=== PATIENT | male | born 1955 | race African-American/Black ===

== ENCOUNTER 2022-07-31 07:20 | Inpatient (IN) ==
[2022-07-31] MEDS ORDERED: ALBUTEROL 2.5 MG/3 ML NEB RESP TX PRN (13:34)
[2022-07-31] MEDS ORDERED: ONDANSETRON 4 MG/2 ML VIAL IV PRN (13:34)
[2022-07-31] MEDS ORDERED: DEXTROSE 10% 250 ML BAG IV PRN (13:40)
[2022-07-31] MEDS ORDERED: GLUCAGON 1 MG VIAL IM PRN (13:40)
[2022-07-31 13:58] LABS: Arterial Base Excess iSTAT 0 MMOL/L (-2.5-2.5); Arterial Bicarbonate iSTAT 25.1 MMOL/L (20-26); Arterial O2 Saturation iSTAT 95 % (95-100); Arterial PCO2 iSTAT 43 MM HG (35-48); Arterial PO2 iSTAT 76 MM HG (80-95); Arterial Total CO2 iSTAT 26 MMO/L (23-27); Arterial pH iSTAT 7.373 (7.35-7.45)
[2022-07-31 14:24] LABS: Basophils % 0.2 % (0.0-0.8); Eosinophils # 0.2 10*3/uL (0.0-0.87); Eosinophils % 2.7 % (0.00-10.9); Hematocrit 25.9 VOL% (42.0-52.0); Hemoglobin 8.2 GM/DL (14.0-18.0); Immature Granulocytes % 0.5 %; Immature Granulocytes Absolute 0.04 #; Lymphocytes # 0.9 10*3/uL (1.4-4.0); Lymphocytes % 10.5 % (21.2-54.2); Mean Corpuscular HGB Conc 31.7 GM/DL (32-36); Mean Platelet Volume 11.2 FL (9.6-12.0); Monocytes # 0.7 10*3/uL (0.11-0.8); Monocytes % 8.7 % (1.7-12.7); NRBC # 0.02 10*3/uL; Neutrophils % 77.4 % (38.7-73.9); Platelet Count 117 T/CUMM (130-400); Red Blood Count 3.01 MC/CUMM (3.8-5.5); Red Cell Distribution Width 15.9 % (9.3-17.3); White Blood Count 8.5 T/CUMM (4-12)
[2022-07-31] MEDS: PANTOPRAZOLE 40 MG VIAL IV SCH (14:26)
[2022-07-31] MEDS: ENOXAPARIN 30 MG/0.3 ML SYRINGE SUBCUT SCH (14:30)
[2022-07-31 14:42] LABS: Alanine Aminotransferase 110 U/L (16-61); Albumin 2.3 G/DL (3.4-5.0); Alkaline Phosphatase 392 U/L (45-117); Aspartate Amino Transferase 41 U/L (0-37); Blood Urea Nitrogen 83 MG/DL (7-18); Calcium 9.1 MG/DL (8.5-10.1); Carbon Dioxide 25 MMOL/L (21-32); Chloride 103 MMOL/L (98-107); Glucose 169 MG/DL (74-106); Lactic Acid 2.2 MMOL/L (0.4-2.0); Potassium 5.4 MMOL/L (3.5-5.1); Sodium 136 MMOL/L (136-145); Total Protein 6.6 G/DL (6.4-8.2)
[2022-07-31 14:49] LABS: INR 1.1; PT Patient Result 12.1 SECS (10.1-12.1)
[2022-07-31] MEDS: CEFEPIME 1,000 MG in SODIUM CHLORIDE 0.9% 100 ML IV SCH (16:17)
[2022-07-31] MEDS: INSULIN LISPRO 100 UNIT/ML SUBCUT SCH (18:05)
[2022-07-31 18:26] LABS: Bilirubin,Urine Negative (Negative); Blood, Urine Moderate mg/dL (Negative); Glucose,Urine (UA) Negative (Negative); Hyaline Casts,Urine 3 /LPF (0-3); Ketones,Urine Negative (Negative); Nitrite,Urine Negative (Negative); Protein,Urine 100 mg/dL (Negative); RBC,Urine 31 /HPF (0-4); Squamous Epithelial Cell,Urine Occasional /HPF (0-10); Urine Appearance CLOUDY (Clear); Urine Color Yellow (Yellow); Urine Specific Gravity 1.014 (1.001-1.035); Urine Urobilinogen < 2.0 eU/dL (<2.0)
[2022-07-31] MEDS: SODIUM ZIRCONIUM CYCLOSILICATE 10 GM PACK PO SCH (21:28)
[2022-08-01] MEDS: INSULIN LISPRO 100 UNIT/ML SUBCUT SCH ×4 (00:02→18:16)
[2022-08-01] MEDS: CEFEPIME 1,000 MG in SODIUM CHLORIDE 0.9% 100 ML IV SCH ×2 (02:04→15:29)
[2022-08-01 03:47] LABS: Arterial Base Excess iSTAT 0 MMOL/L (-2.5-2.5); Arterial Bicarbonate iSTAT 25.1 MMOL/L (20-26); Arterial O2 Saturation iSTAT 97 % (95-100); Arterial PCO2 iSTAT 41 MM HG (35-48); Arterial PO2 iSTAT 90 MM HG (80-95); Arterial Total CO2 iSTAT 26 MMO/L (23-27); Arterial pH iSTAT 7.391 (7.35-7.45)
[2022-08-01 04:37] LABS: Basophils % 0.4 % (0.0-0.8); Eosinophils # 0.3 10*3/uL (0.0-0.87); Eosinophils % 4.3 % (0.00-10.9); Hematocrit 25.7 VOL% (42.0-52.0); Immature Granulocytes % 0.3 %; Immature Granulocytes Absolute 0.02 #; Lymphocytes # 1.1 10*3/uL (1.4-4.0); Lymphocytes % 14.8 % (21.2-54.2); Mean Corpuscular HGB Conc 31.1 GM/DL (32-36); Mean Corpuscular Volume 86.8 FL (87-102); Mean Platelet Volume 11.9 FL (9.6-12.0); Monocytes # 0.8 10*3/uL (0.11-0.8); Monocytes % 10.5 % (1.7-12.7); Neutrophils % 69.7 % (38.7-73.9); Platelet Count 111 T/CUMM (130-400); Red Blood Count 2.96 MC/CUMM (3.8-5.5); Red Cell Distribution Width 15.8 % (9.3-17.3); White Blood Count 7.7 T/CUMM (4-12)
[2022-08-01 05:13] LABS: Osmolality,Calculated 303.7 MOS/KG (273-304); Potassium 5.1 MMOL/L (3.5-5.1)
[2022-08-01 06:06] LABS: Risk Ratio 2.53; VLDL Cholesterol 17.4 MG/DL
[2022-08-01] MEDS: SODIUM ZIRCONIUM CYCLOSILICATE 10 GM PACK PO SCH ×3 (08:31→20:52)
[2022-08-01] MEDS: amLODIPine 5 MG TABLET PO SCH (09:49)
[2022-08-01] MEDS: PANTOPRAZOLE 40 MG VIAL IV SCH (13:15)
[2022-08-01] MEDS: ENOXAPARIN 30 MG/0.3 ML SYRINGE SUBCUT SCH (13:15)
[2022-08-01] MEDS ORDERED: ATORVASTATIN 80 MG TABLET PO SCH (21:00)
[2022-08-02] MEDS: INSULIN LISPRO 100 UNIT/ML SUBCUT SCH ×5 (00:14→23:54)
[2022-08-02] MEDS: CEFEPIME 1,000 MG in SODIUM CHLORIDE 0.9% 100 ML IV SCH ×2 (02:40→16:22)
[2022-08-02 03:54] LABS: Arterial Base Excess iSTAT 0 MMOL/L (-2.5-2.5); Arterial Bicarbonate iSTAT 25.4 MMOL/L (20-26); Arterial O2 Saturation iSTAT 96 % (95-100); Arterial PCO2 iSTAT 43 MM HG (35-48); Arterial PO2 iSTAT 84 MM HG (80-95); Arterial Total CO2 iSTAT 27 MMO/L (23-27); Arterial pH iSTAT 7.376 (7.35-7.45)
[2022-08-02 04:46] LABS: Basophils % 0.4 % (0.0-0.8); Eosinophils # 0.3 10*3/uL (0.0-0.87); Eosinophils % 3.8 % (0.00-10.9); Hematocrit 24.8 VOL% (42.0-52.0); Hemoglobin 7.8 GM/DL (14.0-18.0); Immature Granulocytes % 0.6 %; Immature Granulocytes Absolute 0.05 #; Lymphocytes % 12.5 % (21.2-54.2); Mean Corpuscular HGB Conc 31.5 GM/DL (32-36); Mean Corpuscular Volume 86.7 FL (87-102); Mean Platelet Volume 11.6 FL (9.6-12.0); Monocytes # 0.9 10*3/uL (0.11-0.8); Monocytes % 11.7 % (1.7-12.7); NRBC # 0.02 10*3/uL; Platelet Count 101 T/CUMM (130-400); Red Blood Count 2.86 MC/CUMM (3.8-5.5); Red Cell Distribution Width 15.8 % (9.3-17.3); White Blood Count 7.9 T/CUMM (4-12)
[2022-08-02 05:05] LABS: Albumin 2.2 G/DL (3.4-5.0); Bilirubin,Total 0.6 MG/DL (0.20-1.00); Calcium 8.7 MG/DL (8.5-10.1); Osmolality,Calculated 316.3 MOS/KG (273-304); Potassium 4.9 MMOL/L (3.5-5.1); Total Protein 6.4 G/DL (6.4-8.2)
[2022-08-02] MEDS: LORazepam 2 MG/1 ML VIAL IV PRN ×2 (05:52→22:54)
[2022-08-02] MEDS: amLODIPine 5 MG TABLET PO SCH (08:50)
[2022-08-02] MEDS: SODIUM ZIRCONIUM CYCLOSILICATE 10 GM PACK PO SCH ×2 (08:51→16:20)
[2022-08-02] MEDS: ASPIRIN EC 81 MG TABLET PO SCH (08:51)
[2022-08-02] MEDS: CLOPIDOGREL 75 MG TABLET PO SCH (08:51)
[2022-08-02] MEDS ORDERED: FUROSEMIDE 40 MG/4 ML VIAL IV ONE (11:17)
[2022-08-02 11:37] LABS: Basophils % 0.4 % (0.0-0.8); Eosinophils # 0.3 10*3/uL (0.0-0.87); Hematocrit 25.1 VOL% (42.0-52.0); Hemoglobin 7.7 GM/DL (14.0-18.0); Immature Granulocytes % 0.9 %; Immature Granulocytes Absolute 0.07 #; Lymphocytes # 0.9 10*3/uL (1.4-4.0); Mean Corpuscular HGB Conc 30.7 GM/DL (32-36); Mean Corpuscular Volume 88.1 FL (87-102); Mean Platelet Volume 11.3 FL (9.6-12.0); Monocytes # 0.9 10*3/uL (0.11-0.8); Monocytes % 11.4 % (1.7-12.7); Neutrophils % 72.3 % (38.7-73.9); Platelet Count 101 T/CUMM (130-400); Red Blood Count 2.85 MC/CUMM (3.8-5.5); Red Cell Distribution Width 15.9 % (9.3-17.3)
[2022-08-02] MEDS ORDERED: ZINC OXIDE PASTE 113 GM TUBE TOP PRN (11:46)
[2022-08-02 11:56] LABS: % Iron Saturation 42.9 % (18-50); Ferritin 977.3 ng/mL (26-388)
[2022-08-02 12:25] LABS: Folate 4.38 NG/ML (5.38-24.0); Vitamin B12 > 2000 PG/ML (211-911)
[2022-08-02] MEDS: METOPROLOL TARTRATE 25 MG TABLET NG SCH ×2 (12:52→20:30)
[2022-08-02] MEDS: PANTOPRAZOLE 40 MG VIAL IV SCH (16:20)
[2022-08-02] MEDS: ENOXAPARIN 30 MG/0.3 ML SYRINGE SUBCUT SCH (16:21)
[2022-08-03] MEDS: CEFEPIME 1,000 MG in SODIUM CHLORIDE 0.9% 100 ML IV SCH ×2 (03:28→17:30)
[2022-08-03 03:29] LABS: Arterial Base Excess iSTAT 2 MMOL/L (-2.5-2.5); Arterial Bicarbonate iSTAT 26.8 MMOL/L (20-26); Arterial O2 Saturation iSTAT 97 % (95-100); Arterial PCO2 iSTAT 44 MM HG (35-48); Arterial PO2 iSTAT 88 MM HG (80-95); Arterial Total CO2 iSTAT 28 MMO/L (23-27); Arterial pH iSTAT 7.396 (7.35-7.45)
[2022-08-03 03:53] LABS: Band Neutrophils 1 % (0-10); Eosinophils 2 % (0-10); Lymphocytes 16 % (20-55); Total Cells Counted 100
[2022-08-03 03:54] LABS: Hypochromia Slight; Microcytosis Slight; Ovalocytes Few
[2022-08-03 04:48] LABS: Basophils % 0.4 % (0.0-0.8); Eosinophils # 0.4 10*3/uL (0.0-0.87); Eosinophils % 4.9 % (0.00-10.9); Hematocrit 24.9 VOL% (42.0-52.0); Hemoglobin 7.7 GM/DL (14.0-18.0); Immature Granulocytes % 0.5 %; Immature Granulocytes Absolute 0.04 #; Lymphocytes # 1.1 10*3/uL (1.4-4.0); Lymphocytes % 13.2 % (21.2-54.2); Mean Corpuscular HGB Conc 30.9 GM/DL (32-36); Mean Corpuscular Volume 87.1 FL (87-102); Mean Platelet Volume 11.8 FL (9.6-12.0); Monocytes # 0.9 10*3/uL (0.11-0.8); Monocytes % 11.4 % (1.7-12.7); NRBC # 0.02 10*3/uL; Neutrophils % 69.6 % (38.7-73.9); Platelet Count 103 T/CUMM (130-400); Red Blood Count 2.86 MC/CUMM (3.8-5.5); Red Cell Distribution Width 15.9 % (9.3-17.3); White Blood Count 8.2 T/CUMM (4-12)
[2022-08-03 05:06] LABS: Calcium 8.7 MG/DL (8.5-10.1); Osmolality,Calculated 316.1 MOS/KG (273-304); Potassium 4.6 MMOL/L (3.5-5.1)
[2022-08-03] MEDS: INSULIN LISPRO 100 UNIT/ML SUBCUT SCH ×4 (05:16→23:56)
[2022-08-03] MEDS: LORazepam 2 MG/1 ML VIAL IV PRN ×2 (08:45→19:22)
[2022-08-03] MEDS ORDERED: PHENYTOIN INJ 1,000 MG in SODIUM CHLORIDE 0.9% 100 ML IV ONE (09:00)
[2022-08-03] MEDS: METOPROLOL TARTRATE 25 MG TABLET NG SCH ×2 (09:21→21:52)
[2022-08-03] MEDS: ASPIRIN EC 81 MG TABLET PO SCH (09:22)
[2022-08-03] MEDS: CLOPIDOGREL 75 MG TABLET PO SCH (09:22)
[2022-08-03] MEDS: amLODIPine 5 MG TABLET PO SCH (09:22)
[2022-08-03] MEDS: ALBUTEROL 2.5 MG/3 ML NEB RESP TX SCH ×4 (13:42→23:44)
[2022-08-03] MEDS: PANTOPRAZOLE 40 MG VIAL IV SCH (14:29)
[2022-08-03] MEDS ORDERED: amLODIPine 5 MG TABLET NG ONE (14:30)
[2022-08-03] MEDS: ENOXAPARIN 30 MG/0.3 ML SYRINGE SUBCUT SCH (14:31)
[2022-08-03] MEDS: PHENYTOIN INJ 200 MG in SODIUM CHLORIDE 0.9% 100 ML IV SCH (21:52)
[2022-08-04] MEDS: ACETAMINOPHEN 325 MG TABLET PO PRN (01:34)
[2022-08-04] MEDS: ALBUTEROL 2.5 MG/3 ML NEB RESP TX SCH ×6 (03:17→23:40)
[2022-08-04] MEDS: CEFEPIME 1,000 MG in SODIUM CHLORIDE 0.9% 100 ML IV SCH (03:26)
[2022-08-04 03:45] LABS: Arterial Base Excess iSTAT 2 MMOL/L (-2.5-2.5); Arterial Bicarbonate iSTAT 27.2 MMOL/L (20-26); Arterial O2 Saturation iSTAT 96 % (95-100); Arterial PCO2 iSTAT 45 MM HG (35-48); Arterial PO2 iSTAT 80 MM HG (80-95); Arterial Total CO2 iSTAT 29 MMO/L (23-27)
[2022-08-04 05:40] LABS: Basophils % 0.4 % (0.0-0.8); Eosinophils # 0.3 10*3/uL (0.0-0.87); Eosinophils % 3.8 % (0.00-10.9); Hematocrit 22.8 VOL% (42.0-52.0); Hemoglobin 7.2 GM/DL (14.0-18.0); Immature Granulocytes % 0.5 %; Immature Granulocytes Absolute 0.04 #; Lymphocytes # 1.2 10*3/uL (1.4-4.0); Lymphocytes % 15.7 % (21.2-54.2); Mean Corpuscular HGB Conc 31.6 GM/DL (32-36); Mean Corpuscular Volume 87.4 FL (87-102); Mean Platelet Volume 11.9 FL (9.6-12.0); Monocytes # 1.1 10*3/uL (0.11-0.8); NRBC # 0.02 10*3/uL; Neutrophils % 65.6 % (38.7-73.9); Platelet Count 86 T/CUMM (130-400); Red Blood Count 2.61 MC/CUMM (3.8-5.5); Red Cell Distribution Width 15.8 % (9.3-17.3); White Blood Count 7.8 T/CUMM (4-12)
[2022-08-04] MEDS: INSULIN LISPRO 100 UNIT/ML SUBCUT SCH ×3 (05:52→17:56)
[2022-08-04 05:57] LABS: Calcium 8.5 MG/DL (8.5-10.1); Osmolality,Calculated 319.3 MOS/KG (273-304); Potassium 5.1 MMOL/L (3.5-5.1)
[2022-08-04 06:02] LABS: Hypochromia Slight; Microcytosis Slight; Platelet Estimate Decreased
[2022-08-04] MEDS: LORazepam 2 MG/1 ML VIAL IV PRN ×3 (06:02→13:23)
[2022-08-04] MEDS: ASPIRIN EC 81 MG TABLET PO SCH (08:59)
[2022-08-04] MEDS: amLODIPine 10 MG TABLET NG SCH (08:59)
[2022-08-04] MEDS: INSULIN GLARGINE 100 UNIT/ML SUBCUT SCH (09:00)
[2022-08-04] MEDS: CLOPIDOGREL 75 MG TABLET PO SCH (09:00)
[2022-08-04] MEDS: METOPROLOL TARTRATE 25 MG TABLET NG SCH ×2 (09:00→22:01)
[2022-08-04] MEDS: PHENYTOIN INJ 200 MG in SODIUM CHLORIDE 0.9% 100 ML IV SCH ×2 (09:40→22:01)
[2022-08-04] MEDS: PANTOPRAZOLE 40 MG VIAL IV SCH (13:25)
[2022-08-04] MEDS: ENOXAPARIN 30 MG/0.3 ML SYRINGE SUBCUT SCH (13:25)
[2022-08-05] MEDS: INSULIN LISPRO 100 UNIT/ML SUBCUT SCH ×4 (00:08→18:54)
[2022-08-05] MEDS: ALBUTEROL 2.5 MG/3 ML NEB RESP TX SCH ×6 (03:10→22:45)
[2022-08-05 03:45] LABS: Arterial Base Excess iSTAT 2 MMOL/L (-2.5-2.5); Arterial Bicarbonate iSTAT 27.4 MMOL/L (20-26); Arterial O2 Saturation iSTAT 95 % (95-100); Arterial PCO2 iSTAT 49 MM HG (35-48); Arterial PO2 iSTAT 80 MM HG (80-95); Arterial Total CO2 iSTAT 29 MMO/L (23-27); Arterial pH iSTAT 7.359 (7.35-7.45)
[2022-08-05] MEDS: CEFEPIME 1,000 MG in SODIUM CHLORIDE 0.9% 100 ML IV SCH (05:58)
[2022-08-05 06:04] LABS: Basophils % 0.3 % (0.0-0.8); Eosinophils # 0.6 10*3/uL (0.0-0.87); Eosinophils % 6.2 % (0.00-10.9); Hematocrit 23.4 VOL% (42.0-52.0); Hemoglobin 7.2 GM/DL (14.0-18.0); Immature Granulocytes % 1.1 %; Lymphocytes # 1.4 10*3/uL (1.4-4.0); Lymphocytes % 15.2 % (21.2-54.2); Mean Corpuscular HGB Conc 30.8 GM/DL (32-36); Mean Corpuscular Volume 88.3 FL (87-102); Mean Platelet Volume 12.3 FL (9.6-12.0); Monocytes # 1.4 10*3/uL (0.11-0.8); Monocytes % 15.3 % (1.7-12.7); NRBC # 0.04 10*3/uL; Neutrophils % 61.9 % (38.7-73.9); Platelet Count 81 T/CUMM (130-400); Red Blood Count 2.65 MC/CUMM (3.8-5.5); Red Cell Distribution Width 15.9 % (9.3-17.3); White Blood Count 9.2 T/CUMM (4-12)
[2022-08-05 06:27] LABS: Calcium 8.7 MG/DL (8.5-10.1); Osmolality,Calculated 323.4 MOS/KG (273-304); Potassium 5.4 MMOL/L (3.5-5.1)
[2022-08-05 06:33] LABS: Hypochromia Slight; Microcytosis Slight; Ovalocytes Slight; Platelet Estimate Decreased
[2022-08-05] MEDS: PHENYTOIN INJ 200 MG in SODIUM CHLORIDE 0.9% 100 ML IV SCH ×2 (08:45→21:18)
[2022-08-05] MEDS: METOPROLOL TARTRATE 25 MG TABLET NG SCH (08:45)
[2022-08-05] MEDS: amLODIPine 10 MG TABLET NG SCH (08:45)
[2022-08-05] MEDS: ASPIRIN EC 81 MG TABLET PO SCH (08:45)
[2022-08-05] MEDS: INSULIN GLARGINE 100 UNIT/ML SUBCUT SCH (09:25)
[2022-08-05] MEDS ORDERED: METOPROLOL TARTRATE 25 MG TABLET NG ONE (12:37)
[2022-08-05] MEDS: PANTOPRAZOLE 40 MG VIAL IV SCH (14:00)
[2022-08-05] MEDS: METOPROLOL TARTRATE 50 MG TABLET NG SCH (20:57)
[2022-08-06] MEDS: INSULIN LISPRO 100 UNIT/ML SUBCUT SCH ×3 (00:02→19:19)
[2022-08-06] MEDS: ALBUTEROL 2.5 MG/3 ML NEB RESP TX SCH ×6 (03:17→23:51)
[2022-08-06 03:18] LABS: ABG Base Excess 0.8 MMOL/L (-2.5-2.5); ABG HCO3 25.1 MMOL/L (20-26); ABG Oxygen Saturation 96.7 % (95-100); ABG PCO2 47.9 MM HG (35-48); ABG PH 7.356 (7.35-7.45); ABG TCO2 24.2 MMOL/L (23-27)
[2022-08-06 03:20] LABS: Basophils % 0.3 % (0.0-0.8); Eosinophils # 0.8 10*3/uL (0.0-0.87); Eosinophils % 7.2 % (0.00-10.9); Hematocrit 22.4 VOL% (42.0-52.0); Hemoglobin 7.1 GM/DL (14.0-18.0); Immature Granulocytes % 2.6 %; Immature Granulocytes Absolute 0.27 #; Lymphocytes # 1.3 10*3/uL (1.4-4.0); Lymphocytes % 12.4 % (21.2-54.2); Mean Corpuscular HGB Conc 31.7 GM/DL (32-36); Mean Corpuscular Volume 86.5 FL (87-102); Mean Platelet Volume 11.5 FL (9.6-12.0); Monocytes # 1.7 10*3/uL (0.11-0.8); NRBC # 0.11 10*3/uL; Neutrophils % 61.5 % (38.7-73.9); Platelet Count 76 T/CUMM (130-400); Red Blood Count 2.59 MC/CUMM (3.8-5.5); Red Cell Distribution Width 15.9 % (9.3-17.3); White Blood Count 10.5 T/CUMM (4-12)
[2022-08-06 03:33] LABS: Calcium 8.3 MG/DL (8.5-10.1); Osmolality,Calculated 321.5 MOS/KG (273-304); Potassium 5.8 MMOL/L (3.5-5.1)
[2022-08-06 03:43] LABS: Eosinophils 8 % (0-10); Lymphocytes 12 % (20-55); Nucleated Red Blood Cells 2 /100 WBC (0-5); Platelet Estimate Decreased; Total Cells Counted 100
[2022-08-06 04:14] LABS: Hepatitis B Core IgM Quant < 0.05 Index; Hepatitis B Surface Ag Quant < 0.10 Index; Hepatitis B Surface Ag Result Non-Reactive (NonReactive); Hepatitis C Virus Ab Quant 0.09 Index; Hepatitis C Virus Ab Result Non-Reactive (NonReactive)
[2022-08-06] MEDS: CEFEPIME 1,000 MG in SODIUM CHLORIDE 0.9% 100 ML IV SCH (05:09)
[2022-08-06] MEDS ORDERED: SODIUM CHLORIDE 0.9% 1,000 ML IV PRN (07:28)
[2022-08-06] MEDS: INSULIN GLARGINE 100 UNIT/ML SUBCUT SCH (09:18)
[2022-08-06] MEDS ORDERED: TISSUE ADHESIVE 1 EACH APPLICATOR TOP ONE (11:48)
[2022-08-06] MEDS ORDERED: BUPIVACAINE MPF 0.25% 10 ML VIAL ONE (11:48)
[2022-08-06] MEDS ORDERED: HEPARIN 5,000 UNIT/1 ML VIAL ONE (11:48)
[2022-08-06] MEDS ORDERED: LIDOCAINE MPF 2% /EPI 20 ML VIAL ONE (11:51)
[2022-08-06] MEDS ORDERED: HEPARIN 10,000 UNIT/10 ML VIAL IV PRN (16:21)
[2022-08-06] MEDS ORDERED: hydrALAZINE 20 MG/1 ML VIAL ONE (17:49)
[2022-08-06] MEDS: hydrALAZINE 20 MG/1 ML VIAL IV PRN (17:50)
[2022-08-06] MEDS: hydrALAZINE 25 MG TABLET NG SCH ×2 (19:17→21:00)
[2022-08-06] MEDS: ASPIRIN EC 81 MG TABLET PO SCH (19:17)
[2022-08-06] MEDS: amLODIPine 10 MG TABLET NG SCH (19:18)
[2022-08-06] MEDS: PHENYTOIN INJ 200 MG in SODIUM CHLORIDE 0.9% 100 ML IV SCH ×2 (19:18→21:00)
[2022-08-06] MEDS: METOPROLOL TARTRATE 50 MG TABLET NG SCH ×2 (19:19→21:16)
[2022-08-06] MEDS: LORazepam 2 MG/1 ML VIAL IV PRN (20:05)
[2022-08-06] MEDS: APIXABAN 2.5 MG TABLET PO SCH (21:16)
[2022-08-06] MEDS: FAMOTIDINE 8 MG/ML 50 ML/BOTTLE PO SCH (21:40)
[2022-08-07] MEDS: INSULIN LISPRO 100 UNIT/ML SUBCUT SCH ×4 (00:10→17:53)
[2022-08-07] MEDS: ALBUTEROL 2.5 MG/3 ML NEB RESP TX SCH ×5 (03:45→20:16)
[2022-08-07 04:54] LABS: ABG Base Excess 0.8 MMOL/L (-2.5-2.5); ABG HCO3 25.2 MMOL/L (20-26); ABG Oxygen Saturation 99.6 % (95-100); ABG PCO2 40.3 MM HG (35-48); ABG PH 7.409 (7.35-7.45)
[2022-08-07 05:00] LABS: Basophils # 0.1 10*3/uL (0.0-0.2); Basophils % 0.5 % (0.0-0.8); Hematocrit 23.3 VOL% (42.0-52.0); Hemoglobin 7.3 GM/DL (14.0-18.0); Immature Granulocytes % 7.3 %; Immature Granulocytes Absolute 0.88 #; Lymphocytes # 1.4 10*3/uL (1.4-4.0); Lymphocytes % 11.9 % (21.2-54.2); Mean Corpuscular HGB Conc 31.3 GM/DL (32-36); Mean Corpuscular Volume 86.9 FL (87-102); Mean Platelet Volume 12.3 FL (9.6-12.0); Monocytes # 1.6 10*3/uL (0.11-0.8); Monocytes % 13.1 % (1.7-12.7); Neutrophils % 59.2 % (38.7-73.9); Platelet Count 80 T/CUMM (130-400); Red Blood Count 2.68 MC/CUMM (3.8-5.5); Red Cell Distribution Width 16.2 % (9.3-17.3)
[2022-08-07 05:13] LABS: Calcium 8.6 MG/DL (8.5-10.1); Osmolality,Calculated 318.4 MOS/KG (273-304); Potassium 5.6 MMOL/L (3.5-5.1)
[2022-08-07 06:45] LABS: Band Neutrophils 1 % (0-10); Eosinophils 7 % (0-10); Hypochromia Slight; Lymphocytes 11 % (20-55); Microcytosis Slight; Ovalocytes Slight; Platelet Estimate Decreased; Total Cells Counted 100
[2022-08-07] MEDS: INSULIN GLARGINE 100 UNIT/ML SUBCUT SCH (10:13)
[2022-08-07] MEDS: amLODIPine 10 MG TABLET NG SCH (10:14)
[2022-08-07] MEDS: METOPROLOL TARTRATE 50 MG TABLET NG SCH ×2 (10:14→20:51)
[2022-08-07] MEDS: APIXABAN 2.5 MG TABLET PO SCH ×2 (10:15→20:51)
[2022-08-07] MEDS: hydrALAZINE 25 MG TABLET NG SCH ×3 (10:15→20:51)
[2022-08-07] MEDS: ASPIRIN EC 81 MG TABLET PO SCH (10:15)
[2022-08-07] MEDS: PHENYTOIN INJ 200 MG in SODIUM CHLORIDE 0.9% 100 ML IV SCH ×2 (10:17→20:55)
[2022-08-07] MEDS ORDERED: ALTEPLASE 2 MG VIAL IV SCH (10:30)
[2022-08-07] MEDS: FAMOTIDINE 8 MG/ML 50 ML/BOTTLE PO SCH (20:52)
[2022-08-08] MEDS: LORazepam 2 MG/1 ML VIAL IV PRN (00:03)
[2022-08-08] MEDS: ALBUTEROL 2.5 MG/3 ML NEB RESP TX SCH ×7 (00:04→23:20)
[2022-08-08] MEDS: INSULIN LISPRO 100 UNIT/ML SUBCUT SCH ×4 (00:08→17:39)
[2022-08-08 04:38] LABS: ABG Base Excess 1.5 MMOL/L (-2.5-2.5); ABG HCO3 25.8 MMOL/L (20-26); ABG Oxygen Saturation 99.3 % (95-100); ABG PCO2 48.7 MM HG (35-48); ABG PH 7.356 (7.35-7.45); ABG TCO2 25.8 MMOL/L (23-27)
[2022-08-08 04:42] LABS: Basophils % 0.3 % (0.0-0.8); Eosinophils # 0.8 10*3/uL (0.0-0.87); Eosinophils % 5.7 % (0.00-10.9); Hematocrit 23.4 VOL% (42.0-52.0); Hemoglobin 7.3 GM/DL (14.0-18.0); Immature Granulocytes % 6.9 %; Immature Granulocytes Absolute 0.97 #; Lymphocytes # 1.3 10*3/uL (1.4-4.0); Lymphocytes % 9.6 % (21.2-54.2); Mean Corpuscular HGB Conc 31.2 GM/DL (32-36); Mean Corpuscular Volume 88.3 FL (87-102); Mean Platelet Volume 11.3 FL (9.6-12.0); Monocytes # 1.9 10*3/uL (0.11-0.8); Monocytes % 13.7 % (1.7-12.7); NRBC # 0.16 10*3/uL; Neutrophils % 63.8 % (38.7-73.9); Red Blood Count 2.65 MC/CUMM (3.8-5.5); Red Cell Distribution Width 16.4 % (9.3-17.3)
[2022-08-08 04:43] LABS: Platelet Count 92 T/CUMM (130-400)
[2022-08-08 04:54] LABS: Calcium 8.5 MG/DL (8.5-10.1); Potassium 5.4 MMOL/L (3.5-5.1)
[2022-08-08 06:29] LABS: Band Neutrophils 1 % (0-10); Eosinophils 6 % (0-10); Hypochromia 1+; Lymphocytes 9 % (20-55); Microcytosis 1+; Nucleated Red Blood Cells 1 /100 WBC (0-5); Platelet Estimate Decreased; Total Cells Counted 100
[2022-08-08] MEDS: ASPIRIN EC 81 MG TABLET PO SCH (09:09)
[2022-08-08] MEDS: PHENYTOIN INJ 200 MG in SODIUM CHLORIDE 0.9% 100 ML IV SCH ×2 (09:09→21:45)
[2022-08-08] MEDS: hydrALAZINE 25 MG TABLET NG SCH ×3 (09:09→20:35)
[2022-08-08] MEDS: APIXABAN 2.5 MG TABLET PO SCH ×2 (09:10→20:35)
[2022-08-08] MEDS: INSULIN GLARGINE 100 UNIT/ML SUBCUT SCH (09:11)
[2022-08-08] MEDS: METOPROLOL TARTRATE 50 MG TABLET NG SCH ×2 (09:11→20:36)
[2022-08-08] MEDS: amLODIPine 10 MG TABLET NG SCH (09:11)
[2022-08-08] MEDS: FAMOTIDINE 8 MG/ML 50 ML/BOTTLE PO SCH (20:36)
[2022-08-09] MEDS: INSULIN LISPRO 100 UNIT/ML SUBCUT SCH ×5 (00:17→23:49)
[2022-08-09] MEDS: ALBUTEROL 2.5 MG/3 ML NEB RESP TX SCH ×6 (03:00→23:33)
[2022-08-09 03:31] LABS: Basophils # 0.1 10*3/uL (0.0-0.2); Basophils % 0.4 % (0.0-0.8); Eosinophils # 0.6 10*3/uL (0.0-0.87); Eosinophils % 4.2 % (0.00-10.9); Hemoglobin 7.4 GM/DL (14.0-18.0); Immature Granulocytes Absolute 0.96 #; Lymphocytes # 1.2 10*3/uL (1.4-4.0); Lymphocytes % 8.9 % (21.2-54.2); Mean Corpuscular HGB Conc 30.8 GM/DL (32-36); Mean Corpuscular Volume 89.2 FL (87-102); Monocytes # 1.6 10*3/uL (0.11-0.8); Monocytes % 11.6 % (1.7-12.7); Neutrophils % 67.9 % (38.7-73.9); Platelet Count 108 T/CUMM (130-400); Red Blood Count 2.69 MC/CUMM (3.8-5.5); Red Cell Distribution Width 16.7 % (9.3-17.3); White Blood Count 13.7 T/CUMM (4-12)
[2022-08-09 03:36] LABS: ABG Base Excess -0.6 MMOL/L (-2.5-2.5); ABG HCO3 23.9 MMOL/L (20-26); ABG PCO2 45.1 MM HG (35-48); ABG PH 7.352 (7.35-7.45); ABG PO2 91.6 MM HG (80-95); ABG TCO2 23.7 MMOL/L (23-27)
[2022-08-09 03:51] LABS: Calcium 8.6 MG/DL (8.5-10.1); Osmolality,Calculated 307.2 MOS/KG (273-304); Potassium 5.8 MMOL/L (3.5-5.1)
[2022-08-09 04:04] LABS: Band Neutrophils 3 % (0-10); Eosinophils 3 % (0-10); Lymphocytes 9 % (20-55); Microcytosis 1+; Nucleated Red Blood Cells 3 /100 WBC (0-5); Ovalocytes Slight; Platelet Estimate Decreased; Total Cells Counted 100
[2022-08-09 04:05] LABS: Hypochromia 1+
[2022-08-09] MEDS: INSULIN GLARGINE 100 UNIT/ML SUBCUT SCH ×2 (10:23)
[2022-08-09] MEDS: ASPIRIN EC 81 MG TABLET PO SCH (10:23)
[2022-08-09 11:05] LABS: ABG Base Excess 0.7 MMOL/L (-2.5-2.5); ABG HCO3 25.1 MMOL/L (20-26); ABG Oxygen Saturation 99.6 % (95-100); ABG PCO2 49.4 MM HG (35-48); ABG PH 7.343 (7.35-7.45)
[2022-08-09] MEDS: PHENYTOIN INJ 200 MG in SODIUM CHLORIDE 0.9% 100 ML IV SCH ×2 (11:38→21:00)
[2022-08-09] MEDS: fentaNYL INJ 1,250 MCG in SODIUM CHLORIDE 0.9% 225 ML IV PRN (12:30)
[2022-08-09] MEDS: hydrALAZINE 25 MG TABLET NG SCH ×3 (13:21→20:58)
[2022-08-09] MEDS: amLODIPine 10 MG TABLET NG SCH (13:21)
[2022-08-09] MEDS: APIXABAN 2.5 MG TABLET PO SCH ×2 (13:21→20:59)
[2022-08-09] MEDS: METOPROLOL TARTRATE 50 MG TABLET NG SCH ×2 (13:21→20:59)
[2022-08-09] MEDS ORDERED: ROCURONIUM 100 MG/10 ML VIAL IV ONE (13:23)
[2022-08-09] MEDS: methylPREDNISolone SOD SUC 40 MG/1 ML VIAL IV SCH ×2 (14:55→21:27)
[2022-08-09 15:04] LABS: ABG Base Excess -0.7 MMOL/L (-2.5-2.5); ABG HCO3 23.8 MMOL/L (20-26); ABG Oxygen Saturation 92.5 % (95-100); ABG PCO2 61.6 MM HG (35-48); ABG PH 7.252 (7.35-7.45); ABG PO2 75.7 MM HG (80-95); ABG TCO2 25.9 MMOL/L (23-27)
[2022-08-09 16:32] LABS: Arterial Base Excess iSTAT 1 MMOL/L (-2.5-2.5); Arterial Bicarbonate iSTAT 26.5 MMOL/L (20-26); Arterial O2 Saturation iSTAT 99 % (95-100); Arterial PCO2 iSTAT 49 MM HG (35-48); Arterial PO2 iSTAT 130 MM HG (80-95); Arterial Total CO2 iSTAT 28 MMO/L (23-27); Arterial pH iSTAT 7.344 (7.35-7.45)
[2022-08-09] MEDS: PIPERACILLIN/TAZOBACTAM 3,375 MG in SODIUM CHLORIDE 0.9% 100 ML IV SCH (20:58)
[2022-08-09] MEDS: FAMOTIDINE 8 MG/ML 50 ML/BOTTLE PO SCH (21:31)
[2022-08-10] MEDS: ALBUTEROL 2.5 MG/3 ML NEB RESP TX SCH ×6 (03:11→23:10)
[2022-08-10] MEDS: fentaNYL INJ 1,250 MCG in SODIUM CHLORIDE 0.9% 225 ML IV PRN ×2 (04:00→17:20)
[2022-08-10 04:11] LABS: ABG Base Excess 1.7 MMOL/L (-2.5-2.5); ABG PCO2 39.7 MM HG (35-48); ABG PH 7.426 (7.35-7.45); ABG TCO2 24.6 MMOL/L (23-27)
[2022-08-10 04:21] LABS: Basophils % 0.2 % (0.0-0.8); Eosinophils # 0.1 10*3/uL (0.0-0.87); Eosinophils % 0.6 % (0.00-10.9); Hematocrit 23.8 VOL% (42.0-52.0); Hemoglobin 7.4 GM/DL (14.0-18.0); Immature Granulocytes % 4.4 %; Immature Granulocytes Absolute 0.53 #; Lymphocytes # 0.7 10*3/uL (1.4-4.0); Lymphocytes % 5.6 % (21.2-54.2); Mean Corpuscular HGB Conc 31.1 GM/DL (32-36); Mean Corpuscular Volume 89.1 FL (87-102); Mean Platelet Volume 11.8 FL (9.6-12.0); Monocytes # 0.6 10*3/uL (0.11-0.8); Monocytes % 4.9 % (1.7-12.7); Neutrophils % 84.3 % (38.7-73.9); Platelet Count 135 T/CUMM (130-400); Red Blood Count 2.67 MC/CUMM (3.8-5.5); Red Cell Distribution Width 17.8 % (9.3-17.3); White Blood Count 12.1 T/CUMM (4-12)
[2022-08-10 04:28] LABS: Calcium 8.7 MG/DL (8.5-10.1); Osmolality,Calculated 298.1 MOS/KG (273-304); Potassium 5.5 MMOL/L (3.5-5.1)
[2022-08-10 04:43] LABS: Band Neutrophils 3 % (0-10); Eosinophils 1 % (0-10); Lymphocytes 8 % (20-55); Nucleated Red Blood Cells 1 /100 WBC (0-5); Total Cells Counted 100
[2022-08-10 04:44] LABS: Hypochromia 1+; Microcytosis 1+; Ovalocytes Few; Polychromasia Slight
[2022-08-10 04:45] LABS: Anisocytosis 1+
[2022-08-10] MEDS: methylPREDNISolone SOD SUC 40 MG/1 ML VIAL IV SCH ×3 (05:47→21:08)
[2022-08-10] MEDS: INSULIN LISPRO 100 UNIT/ML SUBCUT SCH ×3 (05:49→19:31)
[2022-08-10] MEDS ORDERED: FOSPHENYTOIN 1,000 MG.PE in SODIUM CHLORIDE 0.9% 250 ML IV ONE (11:00)
[2022-08-10] MEDS: hydrALAZINE 25 MG TABLET NG SCH ×3 (11:08→20:57)
[2022-08-10] MEDS: PHENYTOIN INJ 200 MG in SODIUM CHLORIDE 0.9% 100 ML IV SCH ×2 (11:09→20:29)
[2022-08-10] MEDS: APIXABAN 2.5 MG TABLET PO SCH ×2 (11:09→20:56)
[2022-08-10] MEDS: amLODIPine 10 MG TABLET NG SCH (11:10)
[2022-08-10] MEDS: PIPERACILLIN/TAZOBACTAM 3,375 MG in SODIUM CHLORIDE 0.9% 100 ML IV SCH ×2 (11:10→21:04)
[2022-08-10] MEDS: INSULIN GLARGINE 100 UNIT/ML SUBCUT SCH (11:20)
[2022-08-10] MEDS: METOPROLOL TARTRATE 50 MG TABLET NG SCH ×3 (11:20→20:57)
[2022-08-10 19:24] LABS: Bilirubin,Urine Negative (Negative); Blood, Urine Moderate mg/dL (Negative); Glucose,Urine (UA) Negative (Negative); Ketones,Urine Negative (Negative); Nitrite,Urine Negative (Negative); Protein,Urine 100 mg/dL (Negative); Urine Appearance Cloudy (Clear); Urine Color Yellow (Yellow); Urine Specific Gravity >= 1.030 (1.001-1.035); Urine Urobilinogen 0.2 eU/dL (<2.0)
[2022-08-10 19:28] LABS: Mucus,Urine Occasional /LPF (Occasional); RBC,Urine 41 /HPF (0-4); Squamous Epithelial Cell,Urine Occasional /HPF (0-10)
[2022-08-10] MEDS: FAMOTIDINE 8 MG/ML 50 ML/BOTTLE PO SCH (21:01)
[2022-08-11] MEDS: INSULIN LISPRO 100 UNIT/ML SUBCUT SCH ×4 (00:17→18:23)
[2022-08-11] MEDS: ALBUTEROL 2.5 MG/3 ML NEB RESP TX SCH ×6 (03:00→23:38)
[2022-08-11] MEDS: methylPREDNISolone SOD SUC 40 MG/1 ML VIAL IV SCH ×3 (05:21→21:20)
[2022-08-11 05:38] LABS: ABG Base Excess -2.1 MMOL/L (-2.5-2.5); ABG HCO3 22.6 MMOL/L (20-26); ABG Oxygen Saturation 97.5 % (95-100); ABG PCO2 22.5 MM HG (35-48); ABG PH 7.548 (7.35-7.45); ABG PO2 86.2 MM HG (80-95); ABG TCO2 18.3 MMOL/L (23-27)
[2022-08-11 05:40] LABS: Basophils % 0.1 % (0.0-0.8); Eosinophils % 0.1 % (0.00-10.9); Hematocrit 23.7 VOL% (42.0-52.0); Hemoglobin 7.6 GM/DL (14.0-18.0); Immature Granulocytes % 1.8 %; Immature Granulocytes Absolute 0.18 #; Lymphocytes # 0.9 10*3/uL (1.4-4.0); Lymphocytes % 8.5 % (21.2-54.2); Mean Corpuscular HGB Conc 32.1 GM/DL (32-36); Mean Corpuscular Volume 86.8 FL (87-102); Mean Platelet Volume 11.4 FL (9.6-12.0); Monocytes # 0.8 10*3/uL (0.11-0.8); Monocytes % 8.2 % (1.7-12.7); NRBC # 0.22 10*3/uL; Neutrophils % 81.3 % (38.7-73.9); Platelet Count 193 T/CUMM (130-400); Red Blood Count 2.73 MC/CUMM (3.8-5.5); Red Cell Distribution Width 19.3 % (9.3-17.3); White Blood Count 10.2 T/CUMM (4-12)
[2022-08-11 06:09] LABS: Calcium 8.7 MG/DL (8.5-10.1); Osmolality,Calculated 305.8 MOS/KG (273-304); Potassium 4.9 MMOL/L (3.5-5.1)
[2022-08-11] MEDS: fentaNYL INJ 1,250 MCG in SODIUM CHLORIDE 0.9% 225 ML IV PRN ×2 (08:00→21:20)
[2022-08-11] MEDS: amLODIPine 10 MG TABLET NG SCH (09:11)
[2022-08-11] MEDS: APIXABAN 2.5 MG TABLET PO SCH ×2 (09:11→20:37)
[2022-08-11] MEDS: METOPROLOL TARTRATE 50 MG TABLET NG SCH ×2 (09:11→20:37)
[2022-08-11] MEDS: hydrALAZINE 25 MG TABLET NG SCH (09:11)
[2022-08-11] MEDS: INSULIN GLARGINE 100 UNIT/ML SUBCUT SCH (09:12)
[2022-08-11] MEDS: PHENYTOIN INJ 300 MG in SODIUM CHLORIDE 0.9% 100 ML IV SCH ×2 (09:14→20:37)
[2022-08-11] MEDS: PIPERACILLIN/TAZOBACTAM 3,375 MG in SODIUM CHLORIDE 0.9% 100 ML IV SCH ×2 (09:15→20:38)
[2022-08-11] MEDS: LORazepam 2 MG/1 ML VIAL IV PRN ×2 (10:35→18:20)
[2022-08-11] MEDS ORDERED: DIVALPROEX 500 MG TABLET PO SCH (12:00)
[2022-08-11] MEDS: METOCLOPRAMIDE 10 MG/2 ML VIAL IV SCH ×2 (13:20→18:00)
[2022-08-11] MEDS: VALPROIC ACID 250 MG/5 ML UDCUP PO SCH ×2 (13:22→20:37)
[2022-08-11] MEDS: hydrALAZINE 25 MG TABLET PO SCH ×2 (14:24→20:37)
[2022-08-11] MEDS: FAMOTIDINE 8 MG/ML 50 ML/BOTTLE PO SCH (20:38)
[2022-08-12] MEDS: INSULIN LISPRO 100 UNIT/ML SUBCUT SCH ×4 (00:04→18:14)
[2022-08-12] MEDS: METOCLOPRAMIDE 10 MG/2 ML VIAL IV SCH ×4 (00:04→18:16)
[2022-08-12] MEDS: LORazepam 2 MG/1 ML VIAL IV PRN ×2 (03:10→10:17)
[2022-08-12] MEDS: ALBUTEROL 2.5 MG/3 ML NEB RESP TX SCH ×5 (03:36→19:27)
[2022-08-12 04:11] LABS: ABG Base Excess 0.1 MMOL/L (-2.5-2.5); ABG HCO3 24.6 MMOL/L (20-26); ABG Oxygen Saturation 98.5 % (95-100); ABG PCO2 23.8 MM HG (35-48); ABG PH 7.567 (7.35-7.45); ABG TCO2 20.3 MMOL/L (23-27)
[2022-08-12 04:21] LABS: Basophils % 0.2 % (0.0-0.8); Eosinophils % 0.5 % (0.00-10.9); Hematocrit 23.8 VOL% (42.0-52.0); Hemoglobin 7.6 GM/DL (14.0-18.0); Immature Granulocytes % 1.1 %; Lymphocytes # 0.8 10*3/uL (1.4-4.0); Lymphocytes % 8.9 % (21.2-54.2); Mean Corpuscular HGB Conc 31.9 GM/DL (32-36); Mean Corpuscular Volume 86.2 FL (87-102); Mean Platelet Volume 11.1 FL (9.6-12.0); Monocytes % 11.2 % (1.7-12.7); Neutrophils % 78.1 % (38.7-73.9); Platelet Count 245 T/CUMM (130-400); Red Blood Count 2.76 MC/CUMM (3.8-5.5); White Blood Count 8.8 T/CUMM (4-12)
[2022-08-12 04:22] LABS: Calcium 8.4 MG/DL (8.5-10.1); Osmolality,Calculated 296.8 MOS/KG (273-304); Potassium 4.2 MMOL/L (3.5-5.1)
[2022-08-12] MEDS: methylPREDNISolone SOD SUC 40 MG/1 ML VIAL IV SCH ×3 (05:47→21:00)
[2022-08-12] MEDS: APIXABAN 2.5 MG TABLET PO SCH ×2 (08:33→20:45)
[2022-08-12] MEDS: METOPROLOL TARTRATE 50 MG TABLET NG SCH (08:33)
[2022-08-12] MEDS: VALPROIC ACID 250 MG/5 ML UDCUP PO SCH ×2 (08:34→20:45)
[2022-08-12] MEDS: amLODIPine 10 MG TABLET NG SCH (08:34)
[2022-08-12] MEDS: hydrALAZINE 25 MG TABLET PO SCH (08:34)
[2022-08-12] MEDS: INSULIN GLARGINE 100 UNIT/ML SUBCUT SCH (08:35)
[2022-08-12] MEDS: PHENYTOIN INJ 300 MG in SODIUM CHLORIDE 0.9% 100 ML IV SCH ×2 (08:36→20:45)
[2022-08-12] MEDS: PIPERACILLIN/TAZOBACTAM 3,375 MG in SODIUM CHLORIDE 0.9% 100 ML IV SCH (08:37)
[2022-08-12] MEDS: MEROPENEM 500 MG in SODIUM CHLORIDE 0.9% 100 ML IV SCH (09:38)
[2022-08-12] MEDS ORDERED: LORazepam 2 MG/1 ML VIAL ONE (10:15)
[2022-08-12] MEDS: MIDAZOLAM 100 MG in SODIUM CHLORIDE 0.9% 80 ML IV PRN (11:09)
[2022-08-12] MEDS: FAMOTIDINE 8 MG/ML 50 ML/BOTTLE PO SCH (20:56)
[2022-08-13] MEDS: ALBUTEROL 2.5 MG/3 ML NEB RESP TX SCH ×7 (00:03→22:43)
[2022-08-13] MEDS: INSULIN LISPRO 100 UNIT/ML SUBCUT SCH ×4 (00:19→18:09)
[2022-08-13] MEDS: METOCLOPRAMIDE 10 MG/2 ML VIAL IV SCH ×4 (00:20→21:45)
[2022-08-13] MEDS: LORazepam 2 MG/1 ML VIAL IV PRN (02:00)
[2022-08-13 04:06] LABS: Basophils % 0.1 % (0.0-0.8); Eosinophils # 0.2 10*3/uL (0.0-0.87); Eosinophils % 1.3 % (0.00-10.9); Hematocrit 25.1 VOL% (42.0-52.0); Hemoglobin 7.9 GM/DL (14.0-18.0); Immature Granulocytes % 0.6 %; Immature Granulocytes Absolute 0.09 #; Lymphocytes # 0.8 10*3/uL (1.4-4.0); Lymphocytes % 5.7 % (21.2-54.2); Mean Corpuscular HGB Conc 31.5 GM/DL (32-36); Mean Corpuscular Volume 88.1 FL (87-102); Mean Platelet Volume 10.1 FL (9.6-12.0); Monocytes # 1.2 10*3/uL (0.11-0.8); Monocytes % 8.7 % (1.7-12.7); NRBC # 0.03 10*3/uL; Neutrophils % 83.6 % (38.7-73.9); Platelet Count 250 T/CUMM (130-400); Red Blood Count 2.85 MC/CUMM (3.8-5.5); Red Cell Distribution Width 20.4 % (9.3-17.3); White Blood Count 14.1 T/CUMM (4-12)
[2022-08-13 04:12] LABS: ABG Base Excess -1.9 MMOL/L (-2.5-2.5); ABG HCO3 22.8 MMOL/L (20-26); ABG Oxygen Saturation 99.1 % (95-100); ABG PH 7.449 (7.35-7.45); ABG TCO2 20.1 MMOL/L (23-27)
[2022-08-13 04:30] LABS: Calcium 8.7 MG/DL (8.5-10.1); Osmolality,Calculated 304.7 MOS/KG (273-304); Potassium 3.9 MMOL/L (3.5-5.1)
[2022-08-13] MEDS: methylPREDNISolone SOD SUC 40 MG/1 ML VIAL IV SCH ×2 (05:24→17:43)
[2022-08-13] MEDS: MIDAZOLAM 100 MG in SODIUM CHLORIDE 0.9% 80 ML IV PRN (07:50)
[2022-08-13] MEDS: amLODIPine 10 MG TABLET NG SCH (09:18)
[2022-08-13] MEDS: INSULIN GLARGINE 100 UNIT/ML SUBCUT SCH (09:18)
[2022-08-13] MEDS: VALPROIC ACID 250 MG/5 ML UDCUP PO SCH ×2 (09:18→21:45)
[2022-08-13] MEDS: APIXABAN 2.5 MG TABLET PO SCH ×2 (09:18→21:45)
[2022-08-13] MEDS: PHENYTOIN INJ 300 MG in SODIUM CHLORIDE 0.9% 100 ML IV SCH ×2 (09:19→21:45)
[2022-08-13] MEDS: MEROPENEM 500 MG in SODIUM CHLORIDE 0.9% 100 ML IV SCH (17:45)
[2022-08-13] MEDS: FAMOTIDINE 8 MG/ML 50 ML/BOTTLE PO SCH (21:45)
[2022-08-14] MEDS: INSULIN LISPRO 100 UNIT/ML SUBCUT SCH ×4 (00:29→18:15)
[2022-08-14] MEDS: ALBUTEROL 2.5 MG/3 ML NEB RESP TX SCH ×6 (03:11→23:12)
[2022-08-14] MEDS: MIDAZOLAM DRIP 100 MG/100 ML PREMIX IV PRN ×2 (03:34→22:08)
[2022-08-14 04:40] LABS: Basophils % 0.1 % (0.0-0.8); Eosinophils # 0.4 10*3/uL (0.0-0.87); Eosinophils % 3.2 % (0.00-10.9); Hematocrit 23.1 VOL% (42.0-52.0); Hemoglobin 7.2 GM/DL (14.0-18.0); Immature Granulocytes % 0.6 %; Immature Granulocytes Absolute 0.08 #; Lymphocytes # 0.9 10*3/uL (1.4-4.0); Lymphocytes % 6.3 % (21.2-54.2); Mean Corpuscular HGB Conc 31.2 GM/DL (32-36); Mean Corpuscular Volume 90.6 FL (87-102); Mean Platelet Volume 10.2 FL (9.6-12.0); Monocytes # 1.1 10*3/uL (0.11-0.8); Monocytes % 8.2 % (1.7-12.7); NRBC # 0.02 10*3/uL; Neutrophils % 81.6 % (38.7-73.9); Platelet Count 197 T/CUMM (130-400); Red Blood Count 2.55 MC/CUMM (3.8-5.5); Red Cell Distribution Width 20.8 % (9.3-17.3); White Blood Count 13.6 T/CUMM (4-12)
[2022-08-14 04:40] LABS: Arterial Bicarbonate iSTAT 25.4 MMOL/L (20-26); Arterial pH iSTAT 7.482 (7.35-7.45)
[2022-08-14 05:06] LABS: Calcium 8.4 MG/DL (8.5-10.1); Osmolality,Calculated 304.5 MOS/KG (273-304); Potassium 3.7 MMOL/L (3.5-5.1)
[2022-08-14] MEDS: methylPREDNISolone SOD SUC 40 MG/1 ML VIAL IV SCH ×2 (05:12→17:00)
[2022-08-14] MEDS: METOCLOPRAMIDE 10 MG/2 ML VIAL IV SCH ×3 (05:12→21:15)
[2022-08-14] MEDS: hydrALAZINE 20 MG/1 ML VIAL IV PRN (07:46)
[2022-08-14] MEDS: APIXABAN 2.5 MG TABLET PO SCH ×2 (08:02→20:28)
[2022-08-14] MEDS: VALPROIC ACID 250 MG/5 ML UDCUP PO SCH ×2 (08:02→20:28)
[2022-08-14] MEDS: amLODIPine 10 MG TABLET NG SCH (08:02)
[2022-08-14] MEDS: MULTIVITAMIN LIQUID (CENTRUM) 60 ML BOTTLE PO SCH (08:02)
[2022-08-14] MEDS: INSULIN GLARGINE 100 UNIT/ML SUBCUT SCH (09:05)
[2022-08-14] MEDS: PHENYTOIN INJ 300 MG in SODIUM CHLORIDE 0.9% 100 ML IV SCH ×2 (09:05→21:15)
[2022-08-14] MEDS: MEROPENEM 500 MG in SODIUM CHLORIDE 0.9% 100 ML IV SCH (16:52)
[2022-08-14] MEDS: FAMOTIDINE 8 MG/ML 50 ML/BOTTLE PO SCH (20:28)
[2022-08-15] MEDS: INSULIN LISPRO 100 UNIT/ML SUBCUT SCH ×4 (00:07→17:08)
[2022-08-15] MEDS: ALBUTEROL 2.5 MG/3 ML NEB RESP TX SCH ×6 (02:54→22:40)
[2022-08-15 03:38] LABS: ABG Base Excess 0.2 MMOL/L (-2.5-2.5); ABG HCO3 24.6 MMOL/L (20-26); ABG Oxygen Saturation 96.7 % (95-100); ABG PCO2 41.8 MM HG (35-48); ABG PH 7.388 (7.35-7.45); ABG PO2 88.5 MM HG (80-95); ABG TCO2 23.7 MMOL/L (23-27)
[2022-08-15] MEDS: METOCLOPRAMIDE 10 MG/2 ML VIAL IV SCH ×3 (06:20→21:14)
[2022-08-15] MEDS: methylPREDNISolone SOD SUC 40 MG/1 ML VIAL IV SCH ×2 (06:29→17:10)
[2022-08-15] MEDS: amLODIPine 10 MG TABLET NG SCH (10:30)
[2022-08-15] MEDS: INSULIN GLARGINE 100 UNIT/ML SUBCUT SCH (10:30)
[2022-08-15] MEDS: MULTIVITAMIN LIQUID (CENTRUM) 60 ML BOTTLE PO SCH (10:30)
[2022-08-15] MEDS: VALPROIC ACID 250 MG/5 ML UDCUP PO SCH ×2 (10:30→20:36)
[2022-08-15] MEDS: APIXABAN 2.5 MG TABLET PO SCH (10:30)
[2022-08-15] MEDS: PHENYTOIN INJ 300 MG in SODIUM CHLORIDE 0.9% 100 ML IV SCH ×2 (11:33→20:46)
[2022-08-15] MEDS: MIDAZOLAM DRIP 100 MG/100 ML PREMIX IV PRN (14:31)
[2022-08-15] MEDS: MEROPENEM 500 MG in SODIUM CHLORIDE 0.9% 100 ML IV SCH (16:54)
[2022-08-15] MEDS: FAMOTIDINE 8 MG/ML 50 ML/BOTTLE PO SCH (20:36)
[2022-08-16] MEDS: INSULIN LISPRO 100 UNIT/ML SUBCUT SCH ×4 (00:14→18:24)
[2022-08-16] MEDS: ALBUTEROL 2.5 MG/3 ML NEB RESP TX SCH ×6 (03:05→23:40)
[2022-08-16 04:14] LABS: Basophils # 0.1 10*3/uL (0.0-0.2); Basophils % 0.4 % (0.0-0.8); Eosinophils # 0.7 10*3/uL (0.0-0.87); Eosinophils % 5.4 % (0.00-10.9); Hematocrit 24.4 VOL% (42.0-52.0); Hemoglobin 7.6 GM/DL (14.0-18.0); Immature Granulocytes % 0.8 %; Lymphocytes # 1.1 10*3/uL (1.4-4.0); Mean Corpuscular HGB Conc 31.1 GM/DL (32-36); Mean Platelet Volume 10.2 FL (9.6-12.0); Monocytes # 1.3 10*3/uL (0.11-0.8); Monocytes % 10.4 % (1.7-12.7); Platelet Count 200 T/CUMM (130-400); Red Blood Count 2.71 MC/CUMM (3.8-5.5); Red Cell Distribution Width 21.7 % (9.3-17.3); White Blood Count 12.4 T/CUMM (4-12)
[2022-08-16 04:29] LABS: Arterial Base Excess iSTAT 5 MMOL/L (-2.5-2.5); Arterial Bicarbonate iSTAT 28.4 MMOL/L (20-26); Arterial O2 Saturation iSTAT 100 % (95-100); Arterial PCO2 iSTAT 38 MM HG (35-48); Arterial PO2 iSTAT 195 MM HG (80-95); Arterial Total CO2 iSTAT 30 MMO/L (23-27)
[2022-08-16 04:35] LABS: Calcium 8.6 MG/DL (8.5-10.1); Osmolality,Calculated 296.3 MOS/KG (273-304); Potassium 3.2 MMOL/L (3.5-5.1)
[2022-08-16 04:48] LABS: Phosphorous 3.3 MG/DL (2.5-4.9)
[2022-08-16] MEDS: methylPREDNISolone SOD SUC 40 MG/1 ML VIAL IV SCH ×2 (05:30→17:26)
[2022-08-16] MEDS: METOCLOPRAMIDE 10 MG/2 ML VIAL IV SCH ×3 (05:30→21:24)
[2022-08-16] MEDS: POTASSIUM CHLORIDE RIDER 10 MEQ/100 ML PREMIX IV PRN ×2 (05:35→06:30)
[2022-08-16] MEDS ORDERED: BUPIVACAINE MPF 0.25% 10 ML VIAL ONE ×2 (08:59→09:12)
[2022-08-16] MEDS: LORazepam 2 MG/1 ML VIAL IV PRN (09:05)
[2022-08-16] MEDS: clonazePAM 0.5 MG TABLET PER TUBE SCH ×2 (09:23→20:28)
[2022-08-16] MEDS: PHENYTOIN INJ 300 MG in SODIUM CHLORIDE 0.9% 100 ML IV SCH ×2 (09:24→21:23)
[2022-08-16] MEDS: VALPROIC ACID 250 MG/5 ML UDCUP PO SCH ×2 (09:24→20:28)
[2022-08-16] MEDS: amLODIPine 10 MG TABLET NG SCH (09:24)
[2022-08-16] MEDS: INSULIN GLARGINE 100 UNIT/ML SUBCUT SCH (09:25)
[2022-08-16] MEDS ORDERED: MIDAZOLAM 2 MG/2 ML VIAL ONE (10:01)
[2022-08-16] MEDS ORDERED: GLYCOPYRROLATE 0.4 MG/2 ML VIAL ONE (10:09)
[2022-08-16] MEDS ORDERED: SEVOFLURANE 1 UNIT/15 MINUTE INH ONE (10:10)
[2022-08-16] MEDS ORDERED: ROCURONIUM 50 MG/5 ML VIAL IV ONE ×2 (10:10→10:31)
[2022-08-16] MEDS: MULTIVITAMIN LIQUID (CENTRUM) 60 ML BOTTLE PO SCH (10:23)
[2022-08-16] MEDS: hydrALAZINE 20 MG/1 ML VIAL IV PRN (11:45)
[2022-08-16] MEDS: MIDAZOLAM DRIP 100 MG/100 ML PREMIX IV PRN (15:45)
[2022-08-16] MEDS: PHENobarbital 130 MG/1 ML VIAL IV SCH (16:00)
[2022-08-16] MEDS: MEROPENEM 500 MG in SODIUM CHLORIDE 0.9% 100 ML IV SCH (17:25)
[2022-08-16] MEDS: FAMOTIDINE 8 MG/ML 50 ML/BOTTLE PO SCH (20:27)
[2022-08-17] MEDS: INSULIN LISPRO 100 UNIT/ML SUBCUT SCH ×4 (00:01→18:58)
[2022-08-17 03:39] LABS: Arterial Base Excess iSTAT 3 MMOL/L (-2.5-2.5); Arterial Bicarbonate iSTAT 25.3 MMOL/L (20-26); Arterial O2 Saturation iSTAT 98 % (95-100); Arterial PCO2 iSTAT 30 MM HG (35-48); Arterial PO2 iSTAT 85 MM HG (80-95); Arterial Total CO2 iSTAT 26 MMO/L (23-27)
[2022-08-17 03:44] LABS: Basophils # 0.1 10*3/uL (0.0-0.2); Basophils % 0.5 % (0.0-0.8); Eosinophils # 0.5 10*3/uL (0.0-0.87); Eosinophils % 4.8 % (0.00-10.9); Hematocrit 23.5 VOL% (42.0-52.0); Hemoglobin 7.5 GM/DL (14.0-18.0); Lymphocytes # 1.1 10*3/uL (1.4-4.0); Lymphocytes % 10.1 % (21.2-54.2); Mean Corpuscular HGB Conc 31.9 GM/DL (32-36); Mean Corpuscular Volume 89.4 FL (87-102); Monocytes # 1.1 10*3/uL (0.11-0.8); Monocytes % 10.9 % (1.7-12.7); Neutrophils % 72.7 % (38.7-73.9); Platelet Count 232 T/CUMM (130-400); Red Blood Count 2.63 MC/CUMM (3.8-5.5); Red Cell Distribution Width 21.8 % (9.3-17.3); White Blood Count 10.5 T/CUMM (4-12)
[2022-08-17] MEDS: ALBUTEROL 2.5 MG/3 ML NEB RESP TX SCH ×6 (03:59→23:00)
[2022-08-17 04:03] LABS: Alanine Aminotransferase 36 U/L (16-61); Albumin 2.2 G/DL (3.4-5.0); Alkaline Phosphatase 439 U/L (45-117); Aspartate Amino Transferase 37 U/L (0-37); Bilirubin,Total < 0.39 MG/DL (0.20-1.00); Blood Urea Nitrogen 52 MG/DL (7-18); Calcium 8.6 MG/DL (8.5-10.1); Carbon Dioxide 26 MMOL/L (21-32); Chloride 108 MMOL/L (98-107); Glucose 222 MG/DL (74-106); Osmolality,Calculated 301.3 MOS/KG (273-304); Phosphorous 3.7 MG/DL (2.5-4.9); Potassium 3.4 MMOL/L (3.5-5.1); Sodium 141 MMOL/L (136-145)
[2022-08-17] MEDS: PHENobarbital 130 MG/1 ML VIAL IV SCH ×2 (04:27→15:07)
[2022-08-17] MEDS: methylPREDNISolone SOD SUC 40 MG/1 ML VIAL IV SCH ×2 (05:47→18:30)
[2022-08-17] MEDS: METOCLOPRAMIDE 10 MG/2 ML VIAL IV SCH ×3 (05:52→21:12)
[2022-08-17] MEDS: MIDAZOLAM DRIP 100 MG/100 ML PREMIX IV PRN (07:45)
[2022-08-17] MEDS: hydrALAZINE 20 MG/1 ML VIAL IV PRN ×2 (09:10→16:50)
[2022-08-17] MEDS: VALPROIC ACID 250 MG/5 ML UDCUP PO SCH ×2 (09:26→20:10)
[2022-08-17] MEDS: MULTIVITAMIN LIQUID (CENTRUM) 60 ML BOTTLE PO SCH (09:27)
[2022-08-17] MEDS: amLODIPine 10 MG TABLET NG SCH (09:28)
[2022-08-17] MEDS: clonazePAM 0.5 MG TABLET PER TUBE SCH ×2 (09:28→20:10)
[2022-08-17] MEDS: INSULIN GLARGINE 100 UNIT/ML SUBCUT SCH (09:34)
[2022-08-17] MEDS: PHENYTOIN INJ 300 MG in SODIUM CHLORIDE 0.9% 100 ML IV SCH ×2 (09:35→22:15)
[2022-08-17] MEDS ORDERED: METOPROLOL TARTRATE 5 MG/5 ML VIAL IV ONE (12:17)
[2022-08-17] MEDS: MEROPENEM 500 MG in SODIUM CHLORIDE 0.9% 100 ML IV SCH (16:59)
[2022-08-17] MEDS: FAMOTIDINE 8 MG/ML 50 ML/BOTTLE PO SCH (20:10)
[2022-08-17] MEDS: LORazepam 2 MG/1 ML VIAL IV PRN (21:11)
[2022-08-17] MEDS ORDERED: LABETALOL 20 MG/4 ML SYRINGE IV ONE (21:38)
[2022-08-17] MEDS ORDERED: MORPHINE 2 MG/1 ML SYRINGE IV ONE (23:00)
[2022-08-18] MEDS: INSULIN LISPRO 100 UNIT/ML SUBCUT SCH ×4 (00:15→17:22)
[2022-08-18] MEDS: hydrALAZINE 20 MG/1 ML VIAL IV PRN (01:01)
[2022-08-18] MEDS: PHENobarbital 130 MG/1 ML VIAL IV SCH ×2 (03:54→14:33)
[2022-08-18 03:55] LABS: Arterial Base Excess iSTAT 5 MMOL/L (-2.5-2.5); Arterial Bicarbonate iSTAT 27.5 MMOL/L (20-26); Arterial O2 Saturation iSTAT 100 % (95-100); Arterial PCO2 iSTAT 29 MM HG (35-48); Arterial PO2 iSTAT 148 MM HG (80-95); Arterial Total CO2 iSTAT 28 MMO/L (23-27); Arterial pH iSTAT 7.578 (7.35-7.45)
[2022-08-18] MEDS: ALBUTEROL 2.5 MG/3 ML NEB RESP TX SCH ×6 (03:55→23:30)
[2022-08-18 03:56] LABS: Basophils # 0.1 10*3/uL (0.0-0.2); Basophils % 0.6 % (0.0-0.8); Eosinophils # 0.4 10*3/uL (0.0-0.87); Eosinophils % 3.4 % (0.00-10.9); Hematocrit 23.7 VOL% (42.0-52.0); Hemoglobin 7.5 GM/DL (14.0-18.0); Immature Granulocytes % 1.5 %; Immature Granulocytes Absolute 0.16 #; Lymphocytes # 1.1 10*3/uL (1.4-4.0); Lymphocytes % 10.2 % (21.2-54.2); Mean Corpuscular HGB Conc 31.6 GM/DL (32-36); Mean Corpuscular Volume 89.1 FL (87-102); Mean Platelet Volume 9.7 FL (9.6-12.0); Monocytes # 1.2 10*3/uL (0.11-0.8); Monocytes % 11.3 % (1.7-12.7); Platelet Count 220 T/CUMM (130-400); Red Blood Count 2.66 MC/CUMM (3.8-5.5); Red Cell Distribution Width 21.6 % (9.3-17.3); White Blood Count 10.9 T/CUMM (4-12)
[2022-08-18 04:10] LABS: Calcium 8.5 MG/DL (8.5-10.1); Osmolality,Calculated 311.7 MOS/KG (273-304); Potassium 3.1 MMOL/L (3.5-5.1)
[2022-08-18] MEDS: POTASSIUM CHLORIDE RIDER 10 MEQ/100 ML PREMIX IV PRN ×2 (04:29→06:11)
[2022-08-18] MEDS: methylPREDNISolone SOD SUC 40 MG/1 ML VIAL IV SCH ×2 (06:01→17:23)
[2022-08-18] MEDS: METOCLOPRAMIDE 10 MG/2 ML VIAL IV SCH ×3 (06:01→23:13)
[2022-08-18] MEDS ORDERED: POTASSIUM CHLORIDE 20 MEQ TABLET PO PRN (08:37)
[2022-08-18] MEDS ORDERED: POTASSIUM CHLORIDE 20 MEQ TABLET PO ONE (08:37)
[2022-08-18] MEDS: clonazePAM 0.5 MG TABLET PER TUBE SCH ×2 (08:50→20:31)
[2022-08-18] MEDS: PHENYTOIN INJ 300 MG in SODIUM CHLORIDE 0.9% 100 ML IV SCH ×2 (08:50→20:31)
[2022-08-18] MEDS: VALPROIC ACID 250 MG/5 ML UDCUP PO SCH ×2 (08:50→20:31)
[2022-08-18] MEDS: INSULIN GLARGINE 100 UNIT/ML SUBCUT SCH (08:51)
[2022-08-18] MEDS: MULTIVITAMIN LIQUID (CENTRUM) 60 ML BOTTLE PO SCH (08:51)
[2022-08-18] MEDS: amLODIPine 10 MG TABLET NG SCH (09:14)
[2022-08-18] MEDS: MEROPENEM 500 MG in SODIUM CHLORIDE 0.9% 100 ML IV SCH (17:22)
[2022-08-18] MEDS: FAMOTIDINE 8 MG/ML 50 ML/BOTTLE PO SCH (20:31)
[2022-08-19] MEDS: INSULIN LISPRO 100 UNIT/ML SUBCUT SCH ×4 (00:03→18:11)
[2022-08-19] MEDS: hydrALAZINE 20 MG/1 ML VIAL IV PRN (03:15)
[2022-08-19] MEDS: ALBUTEROL 2.5 MG/3 ML NEB RESP TX SCH ×6 (03:38→22:40)
[2022-08-19] MEDS: PHENobarbital 130 MG/1 ML VIAL IV SCH ×2 (04:01→14:30)
[2022-08-19 04:22] LABS: ABG Base Excess 0.5 MMOL/L (-2.5-2.5); ABG HCO3 24.9 MMOL/L (20-26); ABG PCO2 50.9 MM HG (35-48); ABG PH 7.329 (7.35-7.45); ABG TCO2 25.2 MMOL/L (23-27)
[2022-08-19 04:24] LABS: Basophils # 0.1 10*3/uL (0.0-0.2); Basophils % 0.7 % (0.0-0.8); Eosinophils # 0.6 10*3/uL (0.0-0.87); Eosinophils % 5.5 % (0.00-10.9); Hematocrit 26.3 VOL% (42.0-52.0); Hemoglobin 7.8 GM/DL (14.0-18.0); Immature Granulocytes % 1.8 %; Immature Granulocytes Absolute 0.18 #; Lymphocytes # 1.3 10*3/uL (1.4-4.0); Lymphocytes % 12.4 % (21.2-54.2); Mean Corpuscular HGB Conc 29.7 GM/DL (32-36); Mean Corpuscular Volume 94.6 FL (87-102); Mean Platelet Volume 10.1 FL (9.6-12.0); Monocytes # 1.4 10*3/uL (0.11-0.8); Monocytes % 13.8 % (1.7-12.7); Neutrophils % 65.8 % (38.7-73.9); Platelet Count 218 T/CUMM (130-400); Red Blood Count 2.78 MC/CUMM (3.8-5.5); Red Cell Distribution Width 21.2 % (9.3-17.3); White Blood Count 10.2 T/CUMM (4-12)
[2022-08-19 04:37] LABS: Calcium 8.9 MG/DL (8.5-10.1); Potassium 4.1 MMOL/L (3.5-5.1)
[2022-08-19 04:41] LABS: Phosphorous 4.4 MG/DL (2.5-4.9)
[2022-08-19] MEDS: METOCLOPRAMIDE 10 MG/2 ML VIAL IV SCH ×3 (06:05→22:17)
[2022-08-19] MEDS: methylPREDNISolone SOD SUC 40 MG/1 ML VIAL IV SCH (06:05)
[2022-08-19] MEDS: amLODIPine 10 MG TABLET NG SCH (08:31)
[2022-08-19] MEDS: MULTIVITAMIN LIQUID (CENTRUM) 60 ML BOTTLE PO SCH (08:31)
[2022-08-19] MEDS: clonazePAM 0.5 MG TABLET PER TUBE SCH (08:31)
[2022-08-19] MEDS: INSULIN GLARGINE 100 UNIT/ML SUBCUT SCH (08:32)
[2022-08-19] MEDS: VALPROIC ACID 250 MG/5 ML UDCUP PO SCH ×2 (08:32→20:27)
[2022-08-19] MEDS: PHENYTOIN INJ 300 MG in SODIUM CHLORIDE 0.9% 100 ML IV SCH ×2 (09:33→20:27)
[2022-08-19] MEDS: clonazePAM 0.5 MG TABLET PO SCH ×2 (14:29→20:28)
[2022-08-19] MEDS: MEROPENEM 500 MG in SODIUM CHLORIDE 0.9% 100 ML IV SCH (16:40)
[2022-08-19] MEDS: APIXABAN 2.5 MG TABLET PO SCH (20:27)
[2022-08-19] MEDS: FAMOTIDINE 8 MG/ML 50 ML/BOTTLE PO SCH (20:28)
[2022-08-20] MEDS: INSULIN LISPRO 100 UNIT/ML SUBCUT SCH ×4 (00:06→17:01)
[2022-08-20] MEDS: ALBUTEROL 2.5 MG/3 ML NEB RESP TX SCH ×5 (03:19→19:38)
[2022-08-20] MEDS: PHENobarbital 130 MG/1 ML VIAL IV SCH ×2 (04:30→17:00)
[2022-08-20 04:43] LABS: ABG Base Excess 1.9 MMOL/L (-2.5-2.5); ABG HCO3 26.2 MMOL/L (20-26); ABG Oxygen Saturation 99.2 % (95-100); ABG PCO2 50.9 MM HG (35-48); ABG PH 7.348 (7.35-7.45); ABG TCO2 26.5 MMOL/L (23-27)
[2022-08-20 05:01] LABS: Calcium 8.7 MG/DL (8.5-10.1); Osmolality,Calculated 317.6 MOS/KG (273-304); Potassium 4.5 MMOL/L (3.5-5.1)
[2022-08-20 05:05] LABS: Basophils # 0.1 10*3/uL (0.0-0.2); Basophils % 0.6 % (0.0-0.8); Eosinophils # 0.7 10*3/uL (0.0-0.87); Eosinophils % 7.3 % (0.00-10.9); Hematocrit 24.4 VOL% (42.0-52.0); Hemoglobin 7.2 GM/DL (14.0-18.0); Immature Granulocytes % 1.5 %; Immature Granulocytes Absolute 0.15 #; Lymphocytes % 9.6 % (21.2-54.2); Mean Corpuscular HGB Conc 29.5 GM/DL (32-36); Mean Corpuscular Volume 95.7 FL (87-102); Mean Platelet Volume 10.5 FL (9.6-12.0); Monocytes # 1.2 10*3/uL (0.11-0.8); Platelet Count 212 T/CUMM (130-400); Red Blood Count 2.55 MC/CUMM (3.8-5.5); Red Cell Distribution Width 21.2 % (9.3-17.3); White Blood Count 10.1 T/CUMM (4-12)
[2022-08-20] MEDS: METOCLOPRAMIDE 10 MG/2 ML VIAL IV SCH ×3 (05:54→21:03)
[2022-08-20] MEDS ORDERED: FUROSEMIDE 40 MG/4 ML VIAL IV ONE (07:52)
[2022-08-20] MEDS: VALPROIC ACID 250 MG/5 ML UDCUP PO SCH ×2 (08:04→21:04)
[2022-08-20] MEDS: APIXABAN 2.5 MG TABLET PO SCH ×2 (08:04→21:04)
[2022-08-20] MEDS: amLODIPine 10 MG TABLET NG SCH (08:04)
[2022-08-20] MEDS: clonazePAM 0.5 MG TABLET PO SCH ×3 (08:04→21:04)
[2022-08-20] MEDS: PHENYTOIN INJ 300 MG in SODIUM CHLORIDE 0.9% 100 ML IV SCH ×2 (09:30→21:05)
[2022-08-20] MEDS: INSULIN GLARGINE 100 UNIT/ML SUBCUT SCH (09:35)
[2022-08-20] MEDS: MULTIVITAMIN LIQUID (CENTRUM) 60 ML BOTTLE PO SCH (10:42)
[2022-08-20] MEDS: MEROPENEM 500 MG in SODIUM CHLORIDE 0.9% 100 ML IV SCH (17:00)
[2022-08-20] MEDS: FAMOTIDINE 8 MG/ML 50 ML/BOTTLE PO SCH (21:50)
[2022-08-21] MEDS: INSULIN LISPRO 100 UNIT/ML SUBCUT SCH ×4 (00:04→18:12)
[2022-08-21] MEDS: hydrALAZINE 20 MG/1 ML VIAL IV PRN ×2 (00:05→07:21)
[2022-08-21] MEDS: ALBUTEROL 2.5 MG/3 ML NEB RESP TX SCH ×7 (00:22→23:41)
[2022-08-21] MEDS ORDERED: MORPHINE 2 MG/1 ML SYRINGE IV ONE (00:57)
[2022-08-21] MEDS ORDERED: LABETALOL 20 MG/4 ML SYRINGE IV ONE (03:45)
[2022-08-21 04:05] LABS: ABG Base Excess 2.7 MMOL/L (-2.5-2.5); ABG HCO3 26.8 MMOL/L (20-26); ABG Oxygen Saturation 99.3 % (95-100); ABG PCO2 52.6 MM HG (35-48); ABG PH 7.347 (7.35-7.45); ABG TCO2 27.3 MMOL/L (23-27)
[2022-08-21 04:07] LABS: Basophils # 0.1 10*3/uL (0.0-0.2); Basophils % 0.4 % (0.0-0.8); Eosinophils # 0.6 10*3/uL (0.0-0.87); Eosinophils % 4.9 % (0.00-10.9); Hematocrit 26.3 VOL% (42.0-52.0); Hemoglobin 7.7 GM/DL (14.0-18.0); Immature Granulocytes Absolute 0.13 #; Lymphocytes # 0.9 10*3/uL (1.4-4.0); Lymphocytes % 6.8 % (21.2-54.2); Mean Corpuscular HGB Conc 29.3 GM/DL (32-36); Mean Corpuscular Volume 95.3 FL (87-102); Mean Platelet Volume 10.4 FL (9.6-12.0); Monocytes # 1.3 10*3/uL (0.11-0.8); Monocytes % 10.5 % (1.7-12.7); Neutrophils % 76.4 % (38.7-73.9); Platelet Count 215 T/CUMM (130-400); Red Blood Count 2.76 MC/CUMM (3.8-5.5); Red Cell Distribution Width 21.2 % (9.3-17.3); White Blood Count 12.6 T/CUMM (4-12)
[2022-08-21] MEDS: PHENobarbital 130 MG/1 ML VIAL IV SCH ×2 (04:08→15:27)
[2022-08-21 04:35] LABS: Calcium 9.2 MG/DL (8.5-10.1); Osmolality,Calculated 322.6 MOS/KG (273-304); Potassium 4.6 MMOL/L (3.5-5.1)
[2022-08-21] MEDS: METOCLOPRAMIDE 10 MG/2 ML VIAL IV SCH ×3 (06:26→22:15)
[2022-08-21] MEDS ORDERED: FUROSEMIDE 100 MG/10 ML VIAL IV ONE (08:22)
[2022-08-21] MEDS: clonazePAM 0.5 MG TABLET PO SCH ×3 (08:31→20:30)
[2022-08-21] MEDS: amLODIPine 10 MG TABLET NG SCH (08:31)
[2022-08-21] MEDS: MULTIVITAMIN LIQUID (CENTRUM) 60 ML BOTTLE PO SCH (08:31)
[2022-08-21] MEDS: VALPROIC ACID 250 MG/5 ML UDCUP PO SCH ×2 (08:32→20:31)
[2022-08-21] MEDS: APIXABAN 2.5 MG TABLET PO SCH ×2 (08:32→20:30)
[2022-08-21] MEDS: PHENYTOIN INJ 300 MG in SODIUM CHLORIDE 0.9% 100 ML IV SCH ×2 (08:32→20:31)
[2022-08-21] MEDS: INSULIN GLARGINE 100 UNIT/ML SUBCUT SCH (08:33)
[2022-08-21] MEDS: NYSTATIN CREAM 15 GM TUBE TOP SCH ×2 (13:56→20:30)
[2022-08-21] MEDS: cloNIDine 0.3 MG/24 HR PATCH TRANSDERM SCH (13:59)
[2022-08-21] MEDS: MEROPENEM 500 MG in SODIUM CHLORIDE 0.9% 100 ML IV SCH (17:32)
[2022-08-21] MEDS: FAMOTIDINE 8 MG/ML 50 ML/BOTTLE PO SCH (20:32)
[2022-08-22] MEDS: INSULIN LISPRO 100 UNIT/ML SUBCUT SCH ×4 (00:05→18:08)
[2022-08-22] MEDS: ALBUTEROL 2.5 MG/3 ML NEB RESP TX SCH ×6 (03:03→23:00)
[2022-08-22] MEDS: PHENobarbital 130 MG/1 ML VIAL IV SCH ×2 (03:24→14:36)
[2022-08-22 04:43] LABS: Basophils # 0.1 10*3/uL (0.0-0.2); Basophils % 0.5 % (0.0-0.8); Eosinophils # 0.5 10*3/uL (0.0-0.87); Eosinophils % 4.4 % (0.00-10.9); Hematocrit 24.5 VOL% (42.0-52.0); Hemoglobin 7.2 GM/DL (14.0-18.0); Immature Granulocytes % 0.8 %; Immature Granulocytes Absolute 0.09 #; Lymphocytes # 0.7 10*3/uL (1.4-4.0); Mean Corpuscular HGB Conc 29.4 GM/DL (32-36); Mean Corpuscular Volume 95.3 FL (87-102); Mean Platelet Volume 11.1 FL (9.6-12.0); Monocytes # 1.1 10*3/uL (0.11-0.8); Monocytes % 10.3 % (1.7-12.7); Platelet Count 194 T/CUMM (130-400); Red Blood Count 2.57 MC/CUMM (3.8-5.5); White Blood Count 10.9 T/CUMM (4-12)
[2022-08-22 05:23] LABS: Calcium 9.1 MG/DL (8.5-10.1); Osmolality,Calculated 329.6 MOS/KG (273-304); Potassium 5.2 MMOL/L (3.5-5.1)
[2022-08-22] MEDS: METOCLOPRAMIDE 10 MG/2 ML VIAL IV SCH ×3 (06:09→22:49)
[2022-08-22 06:39] LABS: ABG HCO3 26.2 MMOL/L (20-26); ABG Oxygen Saturation 99.1 % (95-100); ABG PCO2 51.9 MM HG (35-48); ABG PH 7.343 (7.35-7.45); ABG TCO2 26.7 MMOL/L (23-27)
[2022-08-22] MEDS ORDERED: SODIUM POLYSTYRENE SULFATE 15 GM/60 ML BOTTLE PO ONE (08:06)
[2022-08-22] MEDS ORDERED: SODIUM POLYSTYRENE SULFATE 15 GM/60 ML BOTTLE RECTAL ONE (08:11)
[2022-08-22] MEDS: PHENYTOIN INJ 300 MG in SODIUM CHLORIDE 0.9% 100 ML IV SCH ×2 (08:54→20:10)
[2022-08-22] MEDS: amLODIPine 10 MG TABLET NG SCH (08:55)
[2022-08-22] MEDS: clonazePAM 0.5 MG TABLET PO SCH ×3 (08:55→20:06)
[2022-08-22] MEDS: APIXABAN 2.5 MG TABLET PO SCH ×2 (08:55→20:06)
[2022-08-22] MEDS: VALPROIC ACID 250 MG/5 ML UDCUP PO SCH ×2 (08:55→20:06)
[2022-08-22] MEDS: MULTIVITAMIN LIQUID (CENTRUM) 60 ML BOTTLE PO SCH (08:55)
[2022-08-22] MEDS: NYSTATIN CREAM 15 GM TUBE TOP SCH ×2 (08:56→20:06)
[2022-08-22] MEDS: POLYETHYLENE GLYCOL POWDER 17 GM PACK PO SCH (08:57)
[2022-08-22] MEDS: INSULIN GLARGINE 100 UNIT/ML SUBCUT SCH (09:27)
[2022-08-22] MEDS: MEROPENEM 500 MG in SODIUM CHLORIDE 0.9% 100 ML IV SCH (17:40)
[2022-08-22] MEDS: FAMOTIDINE 8 MG/ML 50 ML/BOTTLE PO SCH (20:06)
[2022-08-23] MEDS: INSULIN LISPRO 100 UNIT/ML SUBCUT SCH ×4 (00:19→17:25)
[2022-08-23] MEDS: ALBUTEROL 2.5 MG/3 ML NEB RESP TX SCH ×6 (03:00→23:42)
[2022-08-23] MEDS: PHENobarbital 130 MG/1 ML VIAL IV SCH ×2 (03:09→14:35)
[2022-08-23 04:54] LABS: Basophils # 0.1 10*3/uL (0.0-0.2); Basophils % 0.6 % (0.0-0.8); Eosinophils # 0.6 10*3/uL (0.0-0.87); Eosinophils % 5.7 % (0.00-10.9); Hematocrit 25.6 VOL% (42.0-52.0); Hemoglobin 7.5 GM/DL (14.0-18.0); Immature Granulocytes Absolute 0.11 #; Lymphocytes # 0.7 10*3/uL (1.4-4.0); Lymphocytes % 6.6 % (21.2-54.2); Mean Corpuscular HGB Conc 29.3 GM/DL (32-36); Mean Corpuscular Volume 95.5 FL (87-102); Mean Platelet Volume 10.8 FL (9.6-12.0); Monocytes # 0.9 10*3/uL (0.11-0.8); Monocytes % 8.4 % (1.7-12.7); Neutrophils % 77.7 % (38.7-73.9); Platelet Count 193 T/CUMM (130-400); Red Blood Count 2.68 MC/CUMM (3.8-5.5); Red Cell Distribution Width 21.2 % (9.3-17.3); White Blood Count 10.6 T/CUMM (4-12)
[2022-08-23 04:54] LABS: ABG Base Excess 2.3 MMOL/L (-2.5-2.5); ABG HCO3 26.5 MMOL/L (20-26); ABG Oxygen Saturation 99.3 % (95-100); ABG PH 7.346 (7.35-7.45); ABG TCO2 26.9 MMOL/L (23-27)
[2022-08-23 05:45] LABS: Phosphorous 4.8 MG/DL (2.5-4.9)
[2022-08-23] MEDS: METOCLOPRAMIDE 10 MG/2 ML VIAL IV SCH ×3 (05:48→21:01)
[2022-08-23 06:37] LABS: Calcium 9.1 MG/DL (8.5-10.1); Osmolality,Calculated 330.7 MOS/KG (273-304); Potassium 5.5 MMOL/L (3.5-5.1)
[2022-08-23] MEDS: VALPROIC ACID 250 MG/5 ML UDCUP PO SCH ×2 (08:01→21:00)
[2022-08-23] MEDS: amLODIPine 10 MG TABLET NG SCH (08:01)
[2022-08-23] MEDS: POLYETHYLENE GLYCOL POWDER 17 GM PACK PO SCH (08:01)
[2022-08-23] MEDS: clonazePAM 0.5 MG TABLET PO SCH ×3 (08:01→21:00)
[2022-08-23] MEDS: APIXABAN 2.5 MG TABLET PO SCH (08:01)
[2022-08-23] MEDS: MULTIVITAMIN LIQUID (CENTRUM) 60 ML BOTTLE PO SCH (08:39)
[2022-08-23] MEDS: INSULIN GLARGINE 100 UNIT/ML SUBCUT SCH (08:39)
[2022-08-23] MEDS: NYSTATIN CREAM 15 GM TUBE TOP SCH ×2 (08:40→21:00)
[2022-08-23] MEDS: PHENYTOIN INJ 300 MG in SODIUM CHLORIDE 0.9% 100 ML IV SCH ×2 (09:48→21:00)
[2022-08-23] MEDS ORDERED: FUROSEMIDE 40 MG/4 ML VIAL IV ONE (14:15)
[2022-08-23] MEDS: fentaNYL 25 MCG/HR PATCH TRANSDERM SCH (15:23)
[2022-08-23] MEDS: MEROPENEM 500 MG in SODIUM CHLORIDE 0.9% 100 ML IV SCH (16:53)
[2022-08-23] MEDS: FAMOTIDINE 8 MG/ML 50 ML/BOTTLE PO SCH (21:01)
[2022-08-24] MEDS: INSULIN LISPRO 100 UNIT/ML SUBCUT SCH ×4 (00:19→18:27)
[2022-08-24] MEDS: PHENobarbital 130 MG/1 ML VIAL IV SCH ×2 (02:36→15:43)
[2022-08-24] MEDS: ALBUTEROL 2.5 MG/3 ML NEB RESP TX SCH ×6 (03:45→23:25)
[2022-08-24 05:24] LABS: Basophils # 0.1 10*3/uL (0.0-0.2); Basophils % 0.6 % (0.0-0.8); Eosinophils # 0.6 10*3/uL (0.0-0.87); Eosinophils % 6.5 % (0.00-10.9); Hematocrit 24.9 VOL% (42.0-52.0); Hemoglobin 7.4 GM/DL (14.0-18.0); Lymphocytes # 0.7 10*3/uL (1.4-4.0); Lymphocytes % 6.7 % (21.2-54.2); Mean Corpuscular HGB Conc 29.7 GM/DL (32-36); Mean Corpuscular Volume 95.8 FL (87-102); Mean Platelet Volume 11.4 FL (9.6-12.0); Monocytes # 0.9 10*3/uL (0.11-0.8); Monocytes % 9.4 % (1.7-12.7); Neutrophils % 75.8 % (38.7-73.9); Platelet Count 202 T/CUMM (130-400); Red Cell Distribution Width 21.2 % (9.3-17.3); White Blood Count 9.8 T/CUMM (4-12)
[2022-08-24 05:47] LABS: Albumin 2.4 G/DL (3.4-5.0); Bilirubin,Total 0.5 MG/DL (0.20-1.00); Calcium 9.2 MG/DL (8.5-10.1); Osmolality,Calculated 331.7 MOS/KG (273-304); Potassium 5.7 MMOL/L (3.5-5.1); Total Protein 6.3 G/DL (6.4-8.2)
[2022-08-24 06:10] LABS: Arterial Bicarbonate iSTAT 30.1 MMOL/L (20-26); Arterial pH iSTAT 7.357 (7.35-7.45)
[2022-08-24] MEDS: METOCLOPRAMIDE 10 MG/2 ML VIAL IV SCH ×3 (06:23→21:17)
[2022-08-24] MEDS: clonazePAM 0.5 MG TABLET PO SCH ×3 (08:04→21:16)
[2022-08-24] MEDS: amLODIPine 10 MG TABLET NG SCH (08:04)
[2022-08-24] MEDS: POLYETHYLENE GLYCOL POWDER 17 GM PACK PO SCH (08:04)
[2022-08-24] MEDS: VALPROIC ACID 250 MG/5 ML UDCUP PO SCH ×2 (08:04→21:16)
[2022-08-24] MEDS: MULTIVITAMIN LIQUID (CENTRUM) 60 ML BOTTLE PO SCH (08:05)
[2022-08-24] MEDS: NYSTATIN CREAM 15 GM TUBE TOP SCH ×2 (08:05→21:19)
[2022-08-24] MEDS: INSULIN GLARGINE 100 UNIT/ML SUBCUT SCH (08:16)
[2022-08-24] MEDS: PHENYTOIN INJ 300 MG in SODIUM CHLORIDE 0.9% 100 ML IV SCH ×2 (09:24→21:17)
[2022-08-24] MEDS: SODIUM ZIRCONIUM CYCLOSILICATE 10 GM PACK PO SCH ×3 (09:35→21:17)
[2022-08-24] MEDS: MEROPENEM 500 MG in SODIUM CHLORIDE 0.9% 100 ML IV SCH (17:08)
[2022-08-24] MEDS: FAMOTIDINE 8 MG/ML 50 ML/BOTTLE PO SCH (21:17)
[2022-08-25] MEDS: INSULIN LISPRO 100 UNIT/ML SUBCUT SCH ×4 (00:20→18:27)
[2022-08-25] MEDS: PHENobarbital 130 MG/1 ML VIAL IV SCH ×2 (03:03→16:26)
[2022-08-25] MEDS: ALBUTEROL 2.5 MG/3 ML NEB RESP TX SCH ×5 (03:45→19:25)
[2022-08-25 05:28] LABS: Basophils % 0.4 % (0.0-0.8); Eosinophils # 0.5 10*3/uL (0.0-0.87); Eosinophils % 5.4 % (0.00-10.9); Hematocrit 25.1 VOL% (42.0-52.0); Hemoglobin 7.6 GM/DL (14.0-18.0); Immature Granulocytes % 0.8 %; Immature Granulocytes Absolute 0.08 #; Lymphocytes # 0.7 10*3/uL (1.4-4.0); Lymphocytes % 7.1 % (21.2-54.2); Mean Corpuscular HGB Conc 30.3 GM/DL (32-36); Monocytes # 0.9 10*3/uL (0.11-0.8); Monocytes % 9.6 % (1.7-12.7); Neutrophils % 76.7 % (38.7-73.9); Platelet Count 163 T/CUMM (130-400); Red Blood Count 2.67 MC/CUMM (3.8-5.5); Red Cell Distribution Width 20.5 % (9.3-17.3); White Blood Count 9.5 T/CUMM (4-12)
[2022-08-25] MEDS: METOCLOPRAMIDE 10 MG/2 ML VIAL IV SCH ×3 (05:50→21:12)
[2022-08-25 05:51] LABS: Albumin 2.3 G/DL (3.4-5.0); Bilirubin,Total 0.5 MG/DL (0.20-1.00); Calcium 8.9 MG/DL (8.5-10.1); Osmolality,Calculated 308.4 MOS/KG (273-304); Potassium 4.7 MMOL/L (3.5-5.1); Total Protein 6.4 G/DL (6.4-8.2)
[2022-08-25 08:05] LABS: Arterial Base Excess iSTAT 7 MMOL/L (-2.5-2.5); Arterial Bicarbonate iSTAT 33.2 MMOL/L (20-26); Arterial O2 Saturation iSTAT 99 % (95-100); Arterial PCO2 iSTAT 55 MM HG (35-48); Arterial PO2 iSTAT 121 MM HG (80-95); Arterial Total CO2 iSTAT 35 MMO/L (23-27); Arterial pH iSTAT 7.385 (7.35-7.45)
[2022-08-25] MEDS: METOPROLOL TARTRATE 25 MG TABLET PO SCH ×2 (09:35→21:13)
[2022-08-25] MEDS: INSULIN GLARGINE 100 UNIT/ML SUBCUT SCH (09:35)
[2022-08-25] MEDS: VALPROIC ACID 250 MG/5 ML UDCUP PO SCH ×2 (09:35→21:13)
[2022-08-25] MEDS: amLODIPine 10 MG TABLET NG SCH (09:35)
[2022-08-25] MEDS: MULTIVITAMIN LIQUID (CENTRUM) 60 ML BOTTLE PO SCH (09:36)
[2022-08-25] MEDS: SODIUM ZIRCONIUM CYCLOSILICATE 10 GM PACK PO SCH ×2 (09:37→15:00)
[2022-08-25] MEDS: NYSTATIN CREAM 15 GM TUBE TOP SCH ×2 (09:37→21:13)
[2022-08-25] MEDS: POLYETHYLENE GLYCOL POWDER 17 GM PACK PO SCH (09:37)
[2022-08-25] MEDS: PHENYTOIN INJ 300 MG in SODIUM CHLORIDE 0.9% 100 ML IV SCH ×2 (10:00→21:12)
[2022-08-25 16:03] LABS: Arterial Base Excess iSTAT 6 MMOL/L (-2.5-2.5); Arterial Bicarbonate iSTAT 31.4 MMOL/L (20-26); Arterial O2 Saturation iSTAT 96 % (95-100); Arterial PCO2 iSTAT 53 MM HG (35-48); Arterial PO2 iSTAT 84 MM HG (80-95); Arterial Total CO2 iSTAT 33 MMO/L (23-27); Arterial pH iSTAT 7.383 (7.35-7.45)
[2022-08-25] MEDS: FAMOTIDINE 8 MG/ML 50 ML/BOTTLE PO SCH (21:13)
[2022-08-26] MEDS: ALBUTEROL 2.5 MG/3 ML NEB RESP TX SCH ×7 (00:01→23:30)
[2022-08-26] MEDS: INSULIN LISPRO 100 UNIT/ML SUBCUT SCH ×5 (00:06→23:53)
[2022-08-26] MEDS: PHENobarbital 130 MG/1 ML VIAL IV SCH ×2 (03:06→15:50)
[2022-08-26 04:41] LABS: Arterial Base Excess iSTAT 6 MMOL/L (-2.5-2.5); Arterial Bicarbonate iSTAT 32.4 MMOL/L (20-26); Arterial O2 Saturation iSTAT 99 % (95-100); Arterial PCO2 iSTAT 53 MM HG (35-48); Arterial PO2 iSTAT 161 MM HG (80-95); Arterial Total CO2 iSTAT 34 MMO/L (23-27); Arterial pH iSTAT 7.391 (7.35-7.45)
[2022-08-26] MEDS: METOCLOPRAMIDE 10 MG/2 ML VIAL IV SCH ×3 (05:44→21:21)
[2022-08-26 06:12] LABS: Basophils % 0.3 % (0.0-0.8); Eosinophils # 0.7 10*3/uL (0.0-0.87); Eosinophils % 6.5 % (0.00-10.9); Hematocrit 26.3 VOL% (42.0-52.0); Hemoglobin 8.1 GM/DL (14.0-18.0); Immature Granulocytes % 0.9 %; Immature Granulocytes Absolute 0.09 #; Lymphocytes # 0.6 10*3/uL (1.4-4.0); Lymphocytes % 6.4 % (21.2-54.2); Mean Corpuscular HGB Conc 30.8 GM/DL (32-36); Mean Corpuscular Volume 92.6 FL (87-102); Mean Platelet Volume 10.1 FL (9.6-12.0); Monocytes # 0.9 10*3/uL (0.11-0.8); Monocytes % 9.2 % (1.7-12.7); Neutrophils % 76.7 % (38.7-73.9); Platelet Count 158 T/CUMM (130-400); Red Blood Count 2.84 MC/CUMM (3.8-5.5); Red Cell Distribution Width 20.2 % (9.3-17.3)
[2022-08-26 06:22] LABS: PT Patient Result 11.2 SECS (10.1-12.1)
[2022-08-26 06:32] LABS: Phosphorous 5.4 MG/DL (2.5-4.9)
[2022-08-26 06:43] LABS: Calcium 9.1 MG/DL (8.5-10.1); Osmolality,Calculated 308.8 MOS/KG (273-304); Potassium 4.7 MMOL/L (3.5-5.1)
[2022-08-26] MEDS: VALPROIC ACID 250 MG/5 ML UDCUP PO SCH ×2 (08:42→20:12)
[2022-08-26] MEDS: SODIUM CHLORIDE 0.9% 1,000 ML IV SCH (08:42)
[2022-08-26] MEDS: MULTIVITAMIN LIQUID (CENTRUM) 60 ML BOTTLE PO SCH (08:42)
[2022-08-26] MEDS: POLYETHYLENE GLYCOL POWDER 17 GM PACK PO SCH (08:43)
[2022-08-26] MEDS: SODIUM ZIRCONIUM CYCLOSILICATE 10 GM PACK PO SCH (08:43)
[2022-08-26] MEDS: PHENYTOIN INJ 300 MG in SODIUM CHLORIDE 0.9% 100 ML IV SCH ×2 (08:43→21:21)
[2022-08-26] MEDS: INSULIN GLARGINE 100 UNIT/ML SUBCUT SCH (08:43)
[2022-08-26] MEDS: METOPROLOL TARTRATE 25 MG TABLET PO SCH ×2 (08:43→20:12)
[2022-08-26] MEDS: amLODIPine 10 MG TABLET NG SCH (08:44)
[2022-08-26] MEDS: NYSTATIN CREAM 15 GM TUBE TOP SCH ×2 (08:44→20:13)
[2022-08-26] MEDS: fentaNYL 25 MCG/HR PATCH TRANSDERM SCH (09:05)
[2022-08-26] MEDS ORDERED: hydrALAZINE 20 MG/1 ML VIAL ONE (17:49)
[2022-08-26] MEDS: FAMOTIDINE 8 MG/ML 50 ML/BOTTLE PO SCH (20:13)
[2022-08-27] MEDS: PHENobarbital 130 MG/1 ML VIAL IV SCH ×2 (03:19→15:32)
[2022-08-27] MEDS: ALBUTEROL 2.5 MG/3 ML NEB RESP TX SCH ×6 (03:20→23:45)
[2022-08-27 03:53] LABS: Arterial Base Excess iSTAT 4 MMOL/L (-2.5-2.5); Arterial Bicarbonate iSTAT 30.3 MMOL/L (20-26); Arterial O2 Saturation iSTAT 86 % (95-100); Arterial PCO2 iSTAT 55 MM HG (35-48); Arterial PO2 iSTAT 56 MM HG (80-95); Arterial Total CO2 iSTAT 32 MMO/L (23-27)
[2022-08-27 04:25] LABS: Arterial Base Excess iSTAT 4 MMOL/L (-2.5-2.5); Arterial O2 Saturation iSTAT 97 % (95-100); Arterial PCO2 iSTAT 54 MM HG (35-48); Arterial PO2 iSTAT 102 MM HG (80-95); Arterial Total CO2 iSTAT 32 MMO/L (23-27)
[2022-08-27] MEDS: INSULIN LISPRO 100 UNIT/ML SUBCUT SCH ×4 (05:13→23:48)
[2022-08-27] MEDS: METOCLOPRAMIDE 10 MG/2 ML VIAL IV SCH ×3 (05:25→21:22)
[2022-08-27 06:45] LABS: Basophils % 0.2 % (0.0-0.8); Calcium 9.1 MG/DL (8.5-10.1); Eosinophils # 0.6 10*3/uL (0.0-0.87); Eosinophils % 7.6 % (0.00-10.9); Hemoglobin 8.6 GM/DL (14.0-18.0); Immature Granulocytes % 0.8 %; Immature Granulocytes Absolute 0.07 #; Lymphocytes # 0.5 10*3/uL (1.4-4.0); Lymphocytes % 5.4 % (21.2-54.2); Mean Corpuscular HGB Conc 28.7 GM/DL (32-36); Mean Platelet Volume 11.3 FL (9.6-12.0); Monocytes # 0.8 10*3/uL (0.11-0.8); Monocytes % 9.6 % (1.7-12.7); Neutrophils % 76.4 % (38.7-73.9); Osmolality,Calculated 301.5 MOS/KG (273-304); Platelet Count 130 T/CUMM (130-400); Potassium 4.8 MMOL/L (3.5-5.1); Red Blood Count 3.03 MC/CUMM (3.8-5.5); Red Cell Distribution Width 20.2 % (9.3-17.3); White Blood Count 8.4 T/CUMM (4-12)
[2022-08-27] MEDS: amLODIPine 10 MG TABLET NG SCH ×2 (08:19→11:49)
[2022-08-27] MEDS: POLYETHYLENE GLYCOL POWDER 17 GM PACK PO SCH ×2 (08:19→11:49)
[2022-08-27] MEDS: VALPROIC ACID 250 MG/5 ML UDCUP PO SCH ×3 (08:19→20:56)
[2022-08-27] MEDS: SODIUM ZIRCONIUM CYCLOSILICATE 10 GM PACK PO SCH ×2 (08:19→11:49)
[2022-08-27] MEDS: METOPROLOL TARTRATE 25 MG TABLET PO SCH ×3 (08:19→20:56)
[2022-08-27] MEDS: PHENYTOIN 100 MG/4 ML UDCUP PER TUBE SCH ×3 (08:19→20:56)
[2022-08-27] MEDS: INSULIN GLARGINE 100 UNIT/ML SUBCUT SCH (08:51)
[2022-08-27] MEDS: NYSTATIN CREAM 15 GM TUBE TOP SCH ×2 (08:51→20:58)
[2022-08-27] MEDS ORDERED: hydrALAZINE 20 MG/1 ML VIAL IV ONE (10:30)
[2022-08-27] MEDS: MULTIVITAMIN LIQUID (CENTRUM) 60 ML BOTTLE PO SCH (11:49)
[2022-08-27] MEDS ORDERED: propofoL 200 MG/20 ML VIAL IV ONE (11:56)
[2022-08-27] MEDS: SODIUM CHLORIDE 0.9% 1,000 ML IV SCH (12:03)
[2022-08-27] MEDS: levETIRAcetam LIQUID 100 MG/ML 30 ML/BOTTLE PO SCH (18:19)
[2022-08-27] MEDS: FAMOTIDINE 8 MG/ML 50 ML/BOTTLE PO SCH (20:58)
[2022-08-28] MEDS: ALBUTEROL 2.5 MG/3 ML NEB RESP TX SCH ×6 (03:10→22:46)
[2022-08-28 04:11] LABS: Arterial Base Excess iSTAT 3 MMOL/L (-2.5-2.5); Arterial Bicarbonate iSTAT 28.7 MMOL/L (20-26); Arterial O2 Saturation iSTAT 99 % (95-100); Arterial PCO2 iSTAT 49 MM HG (35-48); Arterial PO2 iSTAT 124 MM HG (80-95); Arterial Total CO2 iSTAT 30 MMO/L (23-27); Arterial pH iSTAT 7.381 (7.35-7.45)
[2022-08-28] MEDS: PHENobarbital 130 MG/1 ML VIAL IV SCH ×2 (04:40→14:53)
[2022-08-28 04:47] LABS: Basophils % 0.3 % (0.0-0.8); Eosinophils # 0.6 10*3/uL (0.0-0.87); Hematocrit 26.6 VOL% (42.0-52.0); Immature Granulocytes Absolute 0.07 #; Lymphocytes # 0.6 10*3/uL (1.4-4.0); Lymphocytes % 8.9 % (21.2-54.2); Mean Corpuscular HGB Conc 30.1 GM/DL (32-36); Mean Corpuscular Volume 93.7 FL (87-102); Mean Platelet Volume 10.5 FL (9.6-12.0); Monocytes # 0.7 10*3/uL (0.11-0.8); Monocytes % 10.4 % (1.7-12.7); Neutrophils % 70.4 % (38.7-73.9); Platelet Count 144 T/CUMM (130-400); Red Blood Count 2.84 MC/CUMM (3.8-5.5); Red Cell Distribution Width 19.8 % (9.3-17.3); White Blood Count 7.1 T/CUMM (4-12)
[2022-08-28] MEDS: INSULIN LISPRO 100 UNIT/ML SUBCUT SCH ×4 (06:19→23:12)
[2022-08-28] MEDS: METOCLOPRAMIDE 10 MG/2 ML VIAL IV SCH ×3 (06:43→21:59)
[2022-08-28 07:23] LABS: Calcium 8.8 MG/DL (8.5-10.1); Osmolality,Calculated 316.1 MOS/KG (273-304); Potassium 4.8 MMOL/L (3.5-5.1)
[2022-08-28] MEDS: SODIUM ZIRCONIUM CYCLOSILICATE 10 GM PACK PO SCH (08:29)
[2022-08-28] MEDS: METOPROLOL TARTRATE 50 MG TABLET PO SCH ×2 (08:29→20:22)
[2022-08-28] MEDS: amLODIPine 10 MG TABLET NG SCH (08:29)
[2022-08-28] MEDS: PHENYTOIN 100 MG/4 ML UDCUP PER TUBE SCH ×2 (08:29→20:22)
[2022-08-28] MEDS: POLYETHYLENE GLYCOL POWDER 17 GM PACK PO SCH (08:29)
[2022-08-28] MEDS: VALPROIC ACID 250 MG/5 ML UDCUP PO SCH ×2 (08:30→20:22)
[2022-08-28] MEDS: MULTIVITAMIN LIQUID (CENTRUM) 60 ML BOTTLE PO SCH (08:50)
[2022-08-28] MEDS: NYSTATIN CREAM 15 GM TUBE TOP SCH ×2 (08:51→20:28)
[2022-08-28] MEDS: INSULIN GLARGINE 100 UNIT/ML SUBCUT SCH (08:51)
[2022-08-28] MEDS: SODIUM CHLORIDE 0.9% 1,000 ML IV SCH (08:51)
[2022-08-28] MEDS: cloNIDine 0.3 MG/24 HR PATCH TRANSDERM SCH (10:58)
[2022-08-28] MEDS: levETIRAcetam LIQUID 100 MG/ML 30 ML/BOTTLE PO SCH (18:15)
[2022-08-28] MEDS: FAMOTIDINE 8 MG/ML 50 ML/BOTTLE PO SCH (20:27)
[2022-08-29] MEDS: ALBUTEROL 2.5 MG/3 ML NEB RESP TX SCH ×6 (03:08→22:26)
[2022-08-29] MEDS: PHENobarbital 130 MG/1 ML VIAL IV SCH ×2 (04:12→15:22)
[2022-08-29 04:16] LABS: Arterial Base Excess iSTAT 4 MMOL/L (-2.5-2.5); Arterial Bicarbonate iSTAT 29.2 MMOL/L (20-26); Arterial O2 Saturation iSTAT 99 % (95-100); Arterial PCO2 iSTAT 48 MM HG (35-48); Arterial PO2 iSTAT 150 MM HG (80-95); Arterial Total CO2 iSTAT 31 MMO/L (23-27); Arterial pH iSTAT 7.397 (7.35-7.45)
[2022-08-29] MEDS: METOCLOPRAMIDE 10 MG/2 ML VIAL IV SCH ×3 (06:14→21:02)
[2022-08-29] MEDS: INSULIN LISPRO 100 UNIT/ML SUBCUT SCH ×4 (06:15→23:12)
[2022-08-29 07:14] LABS: Bilirubin,Total 0.5 MG/DL (0.20-1.00); Calcium 8.4 MG/DL (8.5-10.1); Osmolality,Calculated 302.7 MOS/KG (273-304)
[2022-08-29] MEDS: fentaNYL 25 MCG/HR PATCH TRANSDERM SCH (08:23)
[2022-08-29] MEDS: PHENYTOIN 100 MG/4 ML UDCUP PER TUBE SCH ×2 (08:23→20:56)
[2022-08-29] MEDS: VALPROIC ACID 250 MG/5 ML UDCUP PO SCH ×2 (08:24→20:57)
[2022-08-29] MEDS: amLODIPine 10 MG TABLET NG SCH (08:24)
[2022-08-29] MEDS: POLYETHYLENE GLYCOL POWDER 17 GM PACK PO SCH (08:24)
[2022-08-29] MEDS: METOPROLOL TARTRATE 50 MG TABLET PO SCH ×2 (08:24→20:56)
[2022-08-29] MEDS: SODIUM ZIRCONIUM CYCLOSILICATE 10 GM PACK PO SCH (08:24)
[2022-08-29] MEDS: MULTIVITAMIN LIQUID (CENTRUM) 60 ML BOTTLE PO SCH (09:04)
[2022-08-29] MEDS: INSULIN GLARGINE 100 UNIT/ML SUBCUT SCH (09:04)
[2022-08-29] MEDS: NYSTATIN CREAM 15 GM TUBE TOP SCH ×2 (09:05→21:00)
[2022-08-29] MEDS ORDERED: metOLazone 5 MG TABLET PO ONE (09:44)
[2022-08-29] MEDS: ALBUMIN 25% 12.5 GM/50 ML VIAL IV SCH ×2 (10:17→17:54)
[2022-08-29] MEDS: FUROSEMIDE 40 MG/4 ML VIAL IV SCH ×2 (10:44→15:23)
[2022-08-29] MEDS: levETIRAcetam LIQUID 100 MG/ML 30 ML/BOTTLE PO SCH (17:55)
[2022-08-29] MEDS: FAMOTIDINE 8 MG/ML 50 ML/BOTTLE PO SCH (21:00)
[2022-08-30] MEDS: ALBUMIN 25% 12.5 GM/50 ML VIAL IV SCH (01:31)
[2022-08-30] MEDS: ALBUTEROL 2.5 MG/3 ML NEB RESP TX SCH ×6 (03:06→23:50)
[2022-08-30 03:56] LABS: Arterial Base Excess iSTAT 3 MMOL/L (-2.5-2.5); Arterial Bicarbonate iSTAT 29.3 MMOL/L (20-26); Arterial O2 Saturation iSTAT 99 % (95-100); Arterial PCO2 iSTAT 51 MM HG (35-48); Arterial PO2 iSTAT 126 MM HG (80-95); Arterial Total CO2 iSTAT 31 MMO/L (23-27); Arterial pH iSTAT 7.366 (7.35-7.45)
[2022-08-30] MEDS: PHENobarbital 130 MG/1 ML VIAL IV SCH ×2 (04:00→15:27)
[2022-08-30] MEDS: METOCLOPRAMIDE 10 MG/2 ML VIAL IV SCH ×3 (06:09→21:05)
[2022-08-30 06:37] LABS: Albumin 2.3 G/DL (3.4-5.0); Bilirubin,Total 0.5 MG/DL (0.20-1.00); Calcium 8.5 MG/DL (8.5-10.1); Potassium 3.8 MMOL/L (3.5-5.1); Total Protein 6.3 G/DL (6.4-8.2)
[2022-08-30] MEDS: INSULIN LISPRO 100 UNIT/ML SUBCUT SCH ×4 (06:44→23:43)
[2022-08-30] MEDS: SODIUM CHLORIDE 0.9% 1,000 ML IV SCH ×2 (06:57→15:27)
[2022-08-30] MEDS: SODIUM ZIRCONIUM CYCLOSILICATE 10 GM PACK PO SCH (08:47)
[2022-08-30] MEDS: INSULIN GLARGINE 100 UNIT/ML SUBCUT SCH (08:47)
[2022-08-30] MEDS: VALPROIC ACID 250 MG/5 ML UDCUP PO SCH ×2 (08:47→21:06)
[2022-08-30] MEDS: FUROSEMIDE 40 MG/4 ML VIAL IV SCH ×2 (08:47→15:27)
[2022-08-30] MEDS: POLYETHYLENE GLYCOL POWDER 17 GM PACK PO SCH (08:47)
[2022-08-30] MEDS: MULTIVITAMIN LIQUID (CENTRUM) 60 ML BOTTLE PO SCH (08:47)
[2022-08-30] MEDS: NYSTATIN CREAM 15 GM TUBE TOP SCH ×2 (08:47→21:08)
[2022-08-30] MEDS: PHENYTOIN 100 MG/4 ML UDCUP PER TUBE SCH ×2 (08:47→21:16)
[2022-08-30] MEDS: METOPROLOL TARTRATE 50 MG TABLET PO SCH ×2 (08:47→21:08)
[2022-08-30] MEDS: amLODIPine 10 MG TABLET NG SCH (08:47)
[2022-08-30] MEDS: levETIRAcetam LIQUID 100 MG/ML 30 ML/BOTTLE PO SCH (17:53)
[2022-08-30] MEDS: FAMOTIDINE 8 MG/ML 50 ML/BOTTLE PO SCH (21:05)
[2022-08-30] MEDS: APIXABAN 2.5 MG TABLET PO SCH (21:08)
[2022-08-31] MEDS: ALBUTEROL 2.5 MG/3 ML NEB RESP TX SCH ×6 (03:31→23:19)
[2022-08-31 04:35] LABS: Basophils % 0.1 % (0.0-0.8); Eosinophils # 0.8 10*3/uL (0.0-0.87); Eosinophils % 9.5 % (0.00-10.9); Hematocrit 25.5 VOL% (42.0-52.0); Hemoglobin 7.8 GM/DL (14.0-18.0); Immature Granulocytes Absolute 0.08 #; Lymphocytes # 0.9 10*3/uL (1.4-4.0); Lymphocytes % 10.3 % (21.2-54.2); Mean Corpuscular HGB Conc 30.6 GM/DL (32-36); Mean Corpuscular Volume 92.4 FL (87-102); Mean Platelet Volume 10.5 FL (9.6-12.0); Monocytes # 0.6 10*3/uL (0.11-0.8); Monocytes % 6.5 % (1.7-12.7); Neutrophils % 72.6 % (38.7-73.9); Platelet Count 142 T/CUMM (130-400); Red Blood Count 2.76 MC/CUMM (3.8-5.5); Red Cell Distribution Width 19.9 % (9.3-17.3); White Blood Count 8.4 T/CUMM (4-12)
[2022-08-31 05:10] LABS: Albumin 2.2 G/DL (3.4-5.0); Bilirubin,Total 0.5 MG/DL (0.20-1.00); Calcium 8.4 MG/DL (8.5-10.1); Osmolality,Calculated 303.8 MOS/KG (273-304); Potassium 4.1 MMOL/L (3.5-5.1); Total Protein 6.2 G/DL (6.4-8.2)
[2022-08-31] MEDS: INSULIN LISPRO 100 UNIT/ML SUBCUT SCH ×3 (05:27→18:44)
[2022-08-31] MEDS: METOCLOPRAMIDE 10 MG/2 ML VIAL IV SCH ×3 (06:07→21:26)
[2022-08-31] MEDS: VALPROIC ACID 250 MG/5 ML UDCUP PO SCH ×2 (09:18→21:26)
[2022-08-31] MEDS: PHENYTOIN 100 MG/4 ML UDCUP PER TUBE SCH ×2 (09:19→21:28)
[2022-08-31] MEDS: APIXABAN 2.5 MG TABLET PO SCH ×2 (09:19→21:26)
[2022-08-31] MEDS: POLYETHYLENE GLYCOL POWDER 17 GM PACK PO SCH (09:20)
[2022-08-31] MEDS: INSULIN GLARGINE 100 UNIT/ML SUBCUT SCH (09:20)
[2022-08-31] MEDS: METOPROLOL TARTRATE 50 MG TABLET PO SCH ×2 (09:20→21:26)
[2022-08-31] MEDS: FUROSEMIDE 40 MG/4 ML VIAL IV SCH ×2 (09:21→18:43)
[2022-08-31] MEDS: amLODIPine 10 MG TABLET NG SCH (09:21)
[2022-08-31] MEDS: SODIUM ZIRCONIUM CYCLOSILICATE 10 GM PACK PO SCH (09:22)
[2022-08-31] MEDS: NYSTATIN CREAM 15 GM TUBE TOP SCH ×2 (09:29→21:27)
[2022-08-31] MEDS: MULTIVITAMIN LIQUID (CENTRUM) 60 ML BOTTLE PO SCH (09:29)
[2022-08-31] MEDS: SODIUM CHLORIDE 0.9% 1,000 ML IV SCH (16:01)
[2022-08-31] MEDS: levETIRAcetam LIQUID 100 MG/ML 30 ML/BOTTLE PO SCH (18:44)
[2022-08-31] MEDS: FAMOTIDINE 8 MG/ML 50 ML/BOTTLE PO SCH (21:27)
[2022-09-01] MEDS: INSULIN LISPRO 100 UNIT/ML SUBCUT SCH ×4 (00:59→18:16)
[2022-09-01] MEDS: ALBUTEROL 2.5 MG/3 ML NEB RESP TX SCH ×6 (03:51→23:51)
[2022-09-01 05:43] LABS: Basophils % 0.1 % (0.0-0.8); Eosinophils # 0.8 10*3/uL (0.0-0.87); Eosinophils % 8.7 % (0.00-10.9); Hematocrit 24.6 VOL% (42.0-52.0); Hemoglobin 7.6 GM/DL (14.0-18.0); Immature Granulocytes % 1.3 %; Immature Granulocytes Absolute 0.12 #; Lymphocytes # 0.9 10*3/uL (1.4-4.0); Lymphocytes % 9.3 % (21.2-54.2); Mean Corpuscular HGB Conc 30.9 GM/DL (32-36); Mean Corpuscular Volume 92.1 FL (87-102); Mean Platelet Volume 10.6 FL (9.6-12.0); Monocytes # 0.7 10*3/uL (0.11-0.8); Monocytes % 7.1 % (1.7-12.7); Neutrophils % 73.5 % (38.7-73.9); Platelet Count 140 T/CUMM (130-400); Red Blood Count 2.67 MC/CUMM (3.8-5.5); White Blood Count 9.4 T/CUMM (4-12)
[2022-09-01 06:01] LABS: Albumin 2.2 G/DL (3.4-5.0); Bilirubin,Total 0.5 MG/DL (0.20-1.00); Calcium 8.6 MG/DL (8.5-10.1); Osmolality,Calculated 297.1 MOS/KG (273-304); Potassium 3.8 MMOL/L (3.5-5.1)
[2022-09-01] MEDS: METOCLOPRAMIDE 10 MG/2 ML VIAL IV SCH ×3 (06:19→21:01)
[2022-09-01] MEDS: PHENYTOIN 100 MG/4 ML UDCUP PER TUBE SCH ×2 (09:14→20:30)
[2022-09-01] MEDS: VALPROIC ACID 250 MG/5 ML UDCUP PO SCH ×2 (09:14→20:29)
[2022-09-01] MEDS: SODIUM ZIRCONIUM CYCLOSILICATE 10 GM PACK PO SCH (09:14)
[2022-09-01] MEDS: FUROSEMIDE 40 MG/4 ML VIAL IV SCH ×2 (09:15→16:21)
[2022-09-01] MEDS: MULTIVITAMIN LIQUID (CENTRUM) 60 ML BOTTLE PO SCH (09:18)
[2022-09-01] MEDS: APIXABAN 2.5 MG TABLET PO SCH ×2 (09:18→20:30)
[2022-09-01] MEDS: INSULIN GLARGINE 100 UNIT/ML SUBCUT SCH (09:19)
[2022-09-01] MEDS: POLYETHYLENE GLYCOL POWDER 17 GM PACK PO SCH (09:20)
[2022-09-01] MEDS: METOPROLOL TARTRATE 50 MG TABLET PO SCH ×2 (09:20→20:30)
[2022-09-01] MEDS: amLODIPine 10 MG TABLET NG SCH (09:21)
[2022-09-01] MEDS: NYSTATIN CREAM 15 GM TUBE TOP SCH ×2 (09:24→20:30)
[2022-09-01] MEDS: fentaNYL 25 MCG/HR PATCH TRANSDERM SCH (15:15)
[2022-09-01] MEDS: PHENobarbital 30 MG TABLET PER TUBE SCH ×2 (15:16→20:30)
[2022-09-01] MEDS: levETIRAcetam LIQUID 100 MG/ML 30 ML/BOTTLE PO SCH (18:33)
[2022-09-01] MEDS: FAMOTIDINE 8 MG/ML 50 ML/BOTTLE PO SCH (20:30)
[2022-09-02] MEDS: INSULIN LISPRO 100 UNIT/ML SUBCUT SCH ×5 (00:08→23:50)
[2022-09-02] MEDS: ALBUTEROL 2.5 MG/3 ML NEB RESP TX SCH ×6 (04:02→23:25)
[2022-09-02 05:24] LABS: Basophils % 0.2 % (0.0-0.8); Eosinophils # 0.8 10*3/uL (0.0-0.87); Eosinophils % 7.6 % (0.00-10.9); Hematocrit 24.4 VOL% (42.0-52.0); Hemoglobin 7.5 GM/DL (14.0-18.0); Lymphocytes # 0.9 10*3/uL (1.4-4.0); Lymphocytes % 9.2 % (21.2-54.2); Mean Corpuscular HGB Conc 30.7 GM/DL (32-36); Mean Corpuscular Volume 91.7 FL (87-102); Mean Platelet Volume 10.7 FL (9.6-12.0); Monocytes # 0.7 10*3/uL (0.11-0.8); Monocytes % 6.5 % (1.7-12.7); Neutrophils % 75.5 % (38.7-73.9); Platelet Count 166 T/CUMM (130-400); Red Blood Count 2.66 MC/CUMM (3.8-5.5); Red Cell Distribution Width 19.9 % (9.3-17.3); White Blood Count 9.9 T/CUMM (4-12)
[2022-09-02] MEDS: METOCLOPRAMIDE 10 MG/2 ML VIAL IV SCH ×3 (05:38→21:10)
[2022-09-02 05:40] LABS: Phosphorous 4.8 MG/DL (2.5-4.9)
[2022-09-02 05:56] LABS: Albumin 2.1 G/DL (3.4-5.0); Bilirubin,Total 0.6 MG/DL (0.20-1.00); Calcium 8.6 MG/DL (8.5-10.1); Osmolality,Calculated 303.1 MOS/KG (273-304); Potassium 3.9 MMOL/L (3.5-5.1); Total Protein 6.1 G/DL (6.4-8.2)
[2022-09-02] MEDS: FUROSEMIDE 40 MG/4 ML VIAL IV SCH ×2 (10:50→15:54)
[2022-09-02] MEDS: PHENobarbital 30 MG TABLET PER TUBE SCH ×2 (10:54→20:21)
[2022-09-02] MEDS: INSULIN GLARGINE 100 UNIT/ML SUBCUT SCH (10:54)
[2022-09-02] MEDS: METOPROLOL TARTRATE 50 MG TABLET PO SCH ×2 (10:55→20:21)
[2022-09-02] MEDS: amLODIPine 10 MG TABLET NG SCH (10:55)
[2022-09-02] MEDS: APIXABAN 2.5 MG TABLET PO SCH ×2 (10:55→20:21)
[2022-09-02] MEDS: POLYETHYLENE GLYCOL POWDER 17 GM PACK PO SCH (10:56)
[2022-09-02] MEDS: VALPROIC ACID 250 MG/5 ML UDCUP PO SCH ×2 (10:56→20:21)
[2022-09-02] MEDS: SODIUM ZIRCONIUM CYCLOSILICATE 10 GM PACK PO SCH (10:56)
[2022-09-02] MEDS: PHENYTOIN 100 MG/4 ML UDCUP PER TUBE SCH ×2 (10:56→20:21)
[2022-09-02] MEDS: MULTIVITAMIN LIQUID (CENTRUM) 60 ML BOTTLE PO SCH (10:57)
[2022-09-02] MEDS: NYSTATIN CREAM 15 GM TUBE TOP SCH ×2 (10:57→20:21)
[2022-09-02] MEDS: levETIRAcetam LIQUID 100 MG/ML 30 ML/BOTTLE PO SCH (18:34)
[2022-09-02] MEDS: FAMOTIDINE 8 MG/ML 50 ML/BOTTLE PO SCH (20:21)
[2022-09-03] MEDS: ALBUTEROL 2.5 MG/3 ML NEB RESP TX SCH ×6 (03:30→21:20)
[2022-09-03] MEDS: METOCLOPRAMIDE 10 MG/2 ML VIAL IV SCH ×2 (06:35→13:30)
[2022-09-03] MEDS: INSULIN LISPRO 100 UNIT/ML SUBCUT SCH ×3 (06:35→18:19)
[2022-09-03 07:02] LABS: Basophils % 0.2 % (0.0-0.8); Eosinophils # 0.7 10*3/uL (0.0-0.87); Eosinophils % 6.8 % (0.00-10.9); Hemoglobin 7.3 GM/DL (14.0-18.0); Immature Granulocytes % 1.4 %; Immature Granulocytes Absolute 0.14 #; Lymphocytes # 0.8 10*3/uL (1.4-4.0); Lymphocytes % 8.6 % (21.2-54.2); Mean Corpuscular HGB Conc 30.4 GM/DL (32-36); Mean Corpuscular Volume 92.7 FL (87-102); Mean Platelet Volume 10.2 FL (9.6-12.0); Monocytes # 0.8 10*3/uL (0.11-0.8); Monocytes % 8.5 % (1.7-12.7); Neutrophils % 74.5 % (38.7-73.9); Platelet Count 179 T/CUMM (130-400); Red Blood Count 2.59 MC/CUMM (3.8-5.5); Red Cell Distribution Width 19.9 % (9.3-17.3); White Blood Count 9.8 T/CUMM (4-12)
[2022-09-03 07:41] LABS: Calcium 8.3 MG/DL (8.5-10.1); Osmolality,Calculated 297.1 MOS/KG (273-304); Potassium 3.6 MMOL/L (3.5-5.1)
[2022-09-03] MEDS: FUROSEMIDE 40 MG/4 ML VIAL IV SCH ×2 (08:55→20:35)
[2022-09-03] MEDS: PHENobarbital 30 MG TABLET PER TUBE SCH ×2 (08:55→20:35)
[2022-09-03] MEDS: METOPROLOL TARTRATE 50 MG TABLET PO SCH ×2 (08:56→20:35)
[2022-09-03] MEDS: amLODIPine 10 MG TABLET NG SCH (08:56)
[2022-09-03] MEDS: APIXABAN 2.5 MG TABLET PO SCH ×2 (08:56→20:35)
[2022-09-03] MEDS: PHENYTOIN 100 MG/4 ML UDCUP PER TUBE SCH ×2 (08:56→20:35)
[2022-09-03] MEDS: SODIUM ZIRCONIUM CYCLOSILICATE 10 GM PACK PO SCH (08:57)
[2022-09-03] MEDS: VALPROIC ACID 250 MG/5 ML UDCUP PO SCH ×2 (08:57→20:35)
[2022-09-03] MEDS: MULTIVITAMIN LIQUID (CENTRUM) 60 ML BOTTLE PO SCH (08:57)
[2022-09-03] MEDS: POLYETHYLENE GLYCOL POWDER 17 GM PACK PO SCH (08:58)
[2022-09-03] MEDS: NYSTATIN CREAM 15 GM TUBE TOP SCH ×2 (08:58→20:35)
[2022-09-03] MEDS: INSULIN GLARGINE 100 UNIT/ML SUBCUT SCH ×2 (12:30→18:20)
[2022-09-03] MEDS: levETIRAcetam LIQUID 100 MG/ML 30 ML/BOTTLE PO SCH (18:19)
[2022-09-03] MEDS: FAMOTIDINE 8 MG/ML 50 ML/BOTTLE PO SCH (20:35)
[2022-09-04] MEDS: INSULIN LISPRO 100 UNIT/ML SUBCUT SCH ×4 (00:24→18:19)
[2022-09-04] MEDS: ALBUTEROL 2.5 MG/3 ML NEB RESP TX SCH ×5 (03:00→19:45)
[2022-09-04 05:06] LABS: Basophils % 0.2 % (0.0-0.8); Eosinophils # 0.7 10*3/uL (0.0-0.87); Eosinophils % 6.3 % (0.00-10.9); Hematocrit 23.2 VOL% (42.0-52.0); Hemoglobin 7.2 GM/DL (14.0-18.0); Immature Granulocytes % 1.8 %; Lymphocytes % 8.5 % (21.2-54.2); Mean Corpuscular Volume 92.1 FL (87-102); NRBC # 0.02 10*3/uL; Neutrophils % 74.2 % (38.7-73.9); Platelet Count 207 T/CUMM (130-400); Red Blood Count 2.52 MC/CUMM (3.8-5.5); Red Cell Distribution Width 20.3 % (9.3-17.3); White Blood Count 11.4 T/CUMM (4-12)
[2022-09-04 05:27] LABS: Calcium 8.4 MG/DL (8.5-10.1); Osmolality,Calculated 298.2 MOS/KG (273-304); Potassium 3.7 MMOL/L (3.5-5.1)
[2022-09-04] MEDS: PHENYTOIN 100 MG/4 ML UDCUP PER TUBE SCH ×2 (08:08→20:47)
[2022-09-04] MEDS: MULTIVITAMIN LIQUID (CENTRUM) 60 ML BOTTLE PO SCH (08:08)
[2022-09-04] MEDS: FUROSEMIDE 40 MG/4 ML VIAL IV SCH ×2 (08:09→20:47)
[2022-09-04] MEDS: fentaNYL 25 MCG/HR PATCH TRANSDERM SCH (08:09)
[2022-09-04] MEDS: VALPROIC ACID 250 MG/5 ML UDCUP PO SCH ×2 (08:09→20:47)
[2022-09-04] MEDS: APIXABAN 2.5 MG TABLET PO SCH ×2 (08:10→20:47)
[2022-09-04] MEDS: METOPROLOL TARTRATE 50 MG TABLET PO SCH ×2 (08:10→20:47)
[2022-09-04] MEDS: PHENobarbital 30 MG TABLET PER TUBE SCH ×2 (08:10→20:47)
[2022-09-04] MEDS: amLODIPine 10 MG TABLET NG SCH (08:10)
[2022-09-04] MEDS: NYSTATIN CREAM 15 GM TUBE TOP SCH ×2 (08:11→20:47)
[2022-09-04 10:04] LABS: Hepatitis B Core IgM Quant < 0.05 Index; Hepatitis B Surface Ag Quant < 0.10 Index; Hepatitis B Surface Ag Result Non-Reactive (NonReactive); Hepatitis C Virus Ab Result Non-Reactive (NonReactive)
[2022-09-04] MEDS: INSULIN GLARGINE 100 UNIT/ML SUBCUT SCH (10:30)
[2022-09-04] MEDS: levETIRAcetam LIQUID 100 MG/ML 30 ML/BOTTLE PO SCH (20:46)
[2022-09-04] MEDS: FAMOTIDINE 8 MG/ML 50 ML/BOTTLE PO SCH (20:47)
[2022-09-05] MEDS: ALBUTEROL 2.5 MG/3 ML NEB RESP TX SCH ×7 (00:01→23:00)
[2022-09-05] MEDS: INSULIN LISPRO 100 UNIT/ML SUBCUT SCH ×5 (00:04→23:59)
[2022-09-05 04:11] LABS: Basophils % 0.1 % (0.0-0.8); Eosinophils # 0.6 10*3/uL (0.0-0.87); Eosinophils % 4.6 % (0.00-10.9); Hematocrit 22.9 VOL% (42.0-52.0); Hemoglobin 6.9 GM/DL (14.0-18.0); Immature Granulocytes % 1.8 %; Immature Granulocytes Absolute 0.25 #; Mean Corpuscular HGB Conc 30.1 GM/DL (32-36); Mean Corpuscular Volume 92.7 FL (87-102); Mean Platelet Volume 10.1 FL (9.6-12.0); Monocytes # 1.2 10*3/uL (0.11-0.8); Monocytes % 8.8 % (1.7-12.7); NRBC # 0.03 10*3/uL; Neutrophils % 77.7 % (38.7-73.9); Platelet Count 190 T/CUMM (130-400); Red Blood Count 2.47 MC/CUMM (3.8-5.5); Red Cell Distribution Width 20.5 % (9.3-17.3); White Blood Count 13.8 T/CUMM (4-12)
[2022-09-05 04:29] LABS: Calcium 8.2 MG/DL (8.5-10.1); Osmolality,Calculated 298.1 MOS/KG (273-304); Potassium 3.7 MMOL/L (3.5-5.1)
[2022-09-05] MEDS: MULTIVITAMIN LIQUID (CENTRUM) 60 ML BOTTLE PO SCH (08:54)
[2022-09-05] MEDS: PHENYTOIN 100 MG/4 ML UDCUP PER TUBE SCH ×2 (08:55→20:16)
[2022-09-05] MEDS: FUROSEMIDE 40 MG/4 ML VIAL IV SCH ×2 (08:55→20:16)
[2022-09-05] MEDS: VALPROIC ACID 250 MG/5 ML UDCUP PO SCH ×2 (08:55→20:16)
[2022-09-05] MEDS: PHENobarbital 30 MG TABLET PER TUBE SCH ×2 (08:55→20:17)
[2022-09-05] MEDS: amLODIPine 10 MG TABLET NG SCH (08:56)
[2022-09-05] MEDS: METOPROLOL TARTRATE 50 MG TABLET PO SCH ×2 (08:56→20:17)
[2022-09-05] MEDS: APIXABAN 2.5 MG TABLET PO SCH ×2 (08:56→20:16)
[2022-09-05] MEDS: NYSTATIN CREAM 15 GM TUBE TOP SCH ×2 (08:57→20:17)
[2022-09-05] MEDS: INSULIN GLARGINE 100 UNIT/ML SUBCUT SCH (09:15)
[2022-09-05] MEDS: levETIRAcetam LIQUID 100 MG/ML 30 ML/BOTTLE PO SCH (18:10)
[2022-09-05] MEDS: FAMOTIDINE 8 MG/ML 50 ML/BOTTLE PO SCH (20:17)
[2022-09-05] MEDS ORDERED: ALBUTEROL 1.25 MG/3 ML NEB RESP TX ONE (23:37)
[2022-09-06] MEDS: ALBUTEROL 2.5 MG/3 ML NEB RESP TX SCH ×3 (04:10→12:16)
[2022-09-06 04:58] LABS: Calcium 8.5 MG/DL (8.5-10.1); Osmolality,Calculated 299.2 MOS/KG (273-304); Potassium 4.6 MMOL/L (3.5-5.1)
[2022-09-06] MEDS: INSULIN LISPRO 100 UNIT/ML SUBCUT SCH ×3 (05:43→17:58)
[2022-09-06 06:47] LABS: Basophils % 0.3 % (0.0-0.8); Eosinophils # 0.7 10*3/uL (0.0-0.87); Eosinophils % 5.4 % (0.00-10.9); Hematocrit 23.4 VOL% (42.0-52.0); Immature Granulocytes % 2.5 %; Immature Granulocytes Absolute 0.32 #; Lymphocytes % 7.7 % (21.2-54.2); Mean Corpuscular HGB Conc 29.9 GM/DL (32-36); Mean Corpuscular Volume 94.4 FL (87-102); Monocytes # 1.6 10*3/uL (0.11-0.8); Monocytes % 12.2 % (1.7-12.7); NRBC # 0.06 10*3/uL; Neutrophils % 71.9 % (38.7-73.9); Platelet Count 250 T/CUMM (130-400); Red Blood Count 2.48 MC/CUMM (3.8-5.5); White Blood Count 12.7 T/CUMM (4-12)
[2022-09-06] MEDS: amLODIPine 10 MG TABLET NG SCH (09:23)
[2022-09-06] MEDS: METOPROLOL TARTRATE 50 MG TABLET PO SCH ×2 (09:23→21:00)
[2022-09-06] MEDS: PHENYTOIN 100 MG/4 ML UDCUP PER TUBE SCH ×2 (09:23→20:57)
[2022-09-06] MEDS: APIXABAN 2.5 MG TABLET PO SCH ×2 (09:23→20:57)
[2022-09-06] MEDS: INSULIN GLARGINE 100 UNIT/ML SUBCUT SCH (09:23)
[2022-09-06] MEDS: VALPROIC ACID 250 MG/5 ML UDCUP PO SCH ×2 (09:23→20:57)
[2022-09-06] MEDS: PHENobarbital 30 MG TABLET PER TUBE SCH ×2 (09:23→21:01)
[2022-09-06] MEDS: FUROSEMIDE 40 MG/4 ML VIAL IV SCH ×2 (09:24→20:57)
[2022-09-06] MEDS: MULTIVITAMIN LIQUID (CENTRUM) 60 ML BOTTLE PO SCH (09:26)
[2022-09-06] MEDS: NYSTATIN CREAM 15 GM TUBE TOP SCH ×2 (11:31→21:01)
[2022-09-06] MEDS ORDERED: SODIUM CHLORIDE 0.9% 1,000 ML IV PRN (11:38)
[2022-09-06] MEDS: LEVALBUTEROL 1.25 MG/3 ML NEB RESP TX SCH ×2 (15:05→23:27)
[2022-09-06] MEDS: levETIRAcetam LIQUID 100 MG/ML 30 ML/BOTTLE PO SCH (18:00)
[2022-09-06] MEDS: FAMOTIDINE 8 MG/ML 50 ML/BOTTLE PO SCH (21:01)
[2022-09-07] MEDS: INSULIN LISPRO 100 UNIT/ML SUBCUT SCH ×4 (00:20→17:29)
[2022-09-07 06:31] LABS: Basophils # 0.1 10*3/uL (0.0-0.2); Basophils % 0.4 % (0.0-0.8); Eosinophils # 0.5 10*3/uL (0.0-0.87); Eosinophils % 3.5 % (0.00-10.9); Hematocrit 23.9 VOL% (42.0-52.0); Hemoglobin 7.1 GM/DL (14.0-18.0); Immature Granulocytes % 2.7 %; Immature Granulocytes Absolute 0.35 #; Lymphocytes # 0.9 10*3/uL (1.4-4.0); Lymphocytes % 7.1 % (21.2-54.2); Mean Corpuscular HGB Conc 29.7 GM/DL (32-36); Mean Corpuscular Volume 96.8 FL (87-102); Mean Platelet Volume 10.2 FL (9.6-12.0); Monocytes # 1.5 10*3/uL (0.11-0.8); Monocytes % 11.5 % (1.7-12.7); Neutrophils % 74.8 % (38.7-73.9); Platelet Count 290 T/CUMM (130-400); Red Blood Count 2.47 MC/CUMM (3.8-5.5); Red Cell Distribution Width 21.8 % (9.3-17.3)
[2022-09-07] MEDS: LEVALBUTEROL 1.25 MG/3 ML NEB RESP TX SCH ×3 (07:20→22:52)
[2022-09-07 07:21] LABS: Albumin 2.1 G/DL (3.4-5.0); Bilirubin,Total 0.8 MG/DL (0.20-1.00); Calcium 8.9 MG/DL (8.5-10.1); Osmolality,Calculated 306.5 MOS/KG (273-304); Potassium 4.7 MMOL/L (3.5-5.1); Total Protein 6.5 G/DL (6.4-8.2)
[2022-09-07] MEDS ORDERED: INSULIN GLARGINE 100 UNIT/ML SUBCUT SCH (09:00)
[2022-09-07] MEDS: PHENYTOIN 100 MG/4 ML UDCUP PER TUBE SCH ×2 (09:04→22:21)
[2022-09-07] MEDS: PHENobarbital 30 MG TABLET PER TUBE SCH ×2 (09:04→21:30)
[2022-09-07] MEDS: VALPROIC ACID 250 MG/5 ML UDCUP PO SCH ×2 (09:05→21:29)
[2022-09-07] MEDS: FUROSEMIDE 40 MG/4 ML VIAL IV SCH (09:05)
[2022-09-07] MEDS: amLODIPine 10 MG TABLET NG SCH (09:06)
[2022-09-07] MEDS: METOPROLOL TARTRATE 50 MG TABLET PO SCH ×2 (09:06→21:29)
[2022-09-07] MEDS: APIXABAN 2.5 MG TABLET PO SCH ×2 (09:06→21:29)
[2022-09-07] MEDS: MULTIVITAMIN LIQUID (CENTRUM) 60 ML BOTTLE PO SCH (09:07)
[2022-09-07] MEDS: NYSTATIN CREAM 15 GM TUBE TOP SCH ×2 (09:08→21:29)
[2022-09-07] MEDS: glipiZIDE 5 MG TABLET PO SCH (11:00)
[2022-09-07] MEDS: levETIRAcetam LIQUID 100 MG/ML 30 ML/BOTTLE PO SCH (17:29)
[2022-09-07] MEDS: FAMOTIDINE 8 MG/ML 50 ML/BOTTLE PO SCH (22:21)
[2022-09-08] MEDS: INSULIN LISPRO 100 UNIT/ML SUBCUT SCH ×4 (00:03→17:00)
[2022-09-08 06:50] LABS: Bilirubin,Direct 0.63 MG/DL (0.0-0.20); Bilirubin,Indirect 0.3 MG/DL (0.0-1.0); Bilirubin,Total 0.9 MG/DL (0.20-1.00); Total Protein 6.2 G/DL (6.4-8.2)
[2022-09-08] MEDS: LEVALBUTEROL 1.25 MG/3 ML NEB RESP TX SCH ×3 (07:15→23:29)
[2022-09-08 08:19] LABS: Phenytoin (Dilantin) 6.6 UG/ML (10-20)
[2022-09-08 08:56] LABS: Basophils # 0.1 10*3/uL (0.0-0.2); Basophils % 0.4 % (0.0-0.8); Eosinophils # 0.4 10*3/uL (0.0-0.87); Hematocrit 25.3 VOL% (42.0-52.0); Hemoglobin 7.6 GM/DL (14.0-18.0); Immature Granulocytes Absolute 0.28 #; Lymphocytes # 0.8 10*3/uL (1.4-4.0); Lymphocytes % 5.6 % (21.2-54.2); Mean Corpuscular Volume 94.8 FL (87-102); Mean Platelet Volume 10.7 FL (9.6-12.0); Monocytes # 1.3 10*3/uL (0.11-0.8); Monocytes % 9.2 % (1.7-12.7); NRBC # 0.29 10*3/uL; Neutrophils % 79.8 % (38.7-73.9); Platelet Count 284 T/CUMM (130-400); Red Blood Count 2.67 MC/CUMM (3.8-5.5); Red Cell Distribution Width 21.5 % (9.3-17.3); White Blood Count 14.1 T/CUMM (4-12)
[2022-09-08 09:02] LABS: Calcium 8.9 MG/DL (8.5-10.1); Osmolality,Calculated 298.2 MOS/KG (273-304); Potassium 4.7 MMOL/L (3.5-5.1)
[2022-09-08] MEDS: MULTIVITAMIN LIQUID (CENTRUM) 60 ML BOTTLE PO SCH (09:03)
[2022-09-08] MEDS: VALPROIC ACID 250 MG/5 ML UDCUP PO SCH ×2 (09:05→20:33)
[2022-09-08] MEDS: glipiZIDE 5 MG TABLET PO SCH (09:06)
[2022-09-08] MEDS: amLODIPine 10 MG TABLET NG SCH (09:06)
[2022-09-08] MEDS: PHENobarbital 30 MG TABLET PER TUBE SCH ×2 (09:06→20:34)
[2022-09-08] MEDS: APIXABAN 2.5 MG TABLET PO SCH ×2 (09:06→20:37)
[2022-09-08] MEDS: METOPROLOL TARTRATE 50 MG TABLET PO SCH ×2 (09:06→20:34)
[2022-09-08] MEDS: NYSTATIN CREAM 15 GM TUBE TOP SCH ×2 (09:22→20:43)
[2022-09-08] MEDS: PHENYTOIN 100 MG/4 ML UDCUP PER TUBE SCH ×2 (09:22→20:37)
[2022-09-08] MEDS: INSULIN GLARGINE 100 UNIT/ML SUBCUT SCH ×2 (11:24→20:35)
[2022-09-08] MEDS: levETIRAcetam LIQUID 100 MG/ML 30 ML/BOTTLE PO SCH (17:00)
[2022-09-08] MEDS: FAMOTIDINE 8 MG/ML 50 ML/BOTTLE PO SCH (20:35)
[2022-09-09] MEDS: ACETAMINOPHEN 325 MG TABLET PO PRN (01:15)
[2022-09-09] MEDS: INSULIN LISPRO 100 UNIT/ML SUBCUT SCH ×4 (01:15→17:27)
[2022-09-09] MEDS: LEVALBUTEROL 1.25 MG/3 ML NEB RESP TX SCH ×3 (02:00→23:10)
[2022-09-09 05:35] LABS: Basophils % 0.3 % (0.0-0.8); Eosinophils # 0.4 10*3/uL (0.0-0.87); Eosinophils % 3.1 % (0.00-10.9); Hematocrit 24.3 VOL% (42.0-52.0); Hemoglobin 7.5 GM/DL (14.0-18.0); Immature Granulocytes % 2.5 %; Immature Granulocytes Absolute 0.33 #; Lymphocytes # 1.2 10*3/uL (1.4-4.0); Lymphocytes % 8.9 % (21.2-54.2); Mean Corpuscular HGB Conc 30.9 GM/DL (32-36); Mean Corpuscular Volume 93.1 FL (87-102); Mean Platelet Volume 9.9 FL (9.6-12.0); Monocytes # 1.5 10*3/uL (0.11-0.8); Monocytes % 11.4 % (1.7-12.7); NRBC # 0.35 10*3/uL; Neutrophils % 73.8 % (38.7-73.9); Platelet Count 271 T/CUMM (130-400); Red Blood Count 2.61 MC/CUMM (3.8-5.5); Red Cell Distribution Width 21.6 % (9.3-17.3); White Blood Count 13.2 T/CUMM (4-12)
[2022-09-09 05:51] LABS: Calcium 8.8 MG/DL (8.5-10.1); Osmolality,Calculated 305.2 MOS/KG (273-304); Potassium 4.8 MMOL/L (3.5-5.1)
[2022-09-09 06:06] LABS: Albumin 1.9 G/DL (3.4-5.0); Bilirubin,Direct 0.66 MG/DL (0.0-0.20); Bilirubin,Indirect 0.3 MG/DL (0.0-1.0); Total Protein 5.7 G/DL (6.4-8.2)
[2022-09-09] MEDS: glipiZIDE 5 MG TABLET PO SCH (07:17)
[2022-09-09] MEDS: APIXABAN 2.5 MG TABLET PO SCH ×2 (08:01→21:30)
[2022-09-09] MEDS: INSULIN GLARGINE 100 UNIT/ML SUBCUT SCH ×2 (08:01→21:33)
[2022-09-09] MEDS: PHENYTOIN 100 MG/4 ML UDCUP PER TUBE SCH ×2 (08:01→21:33)
[2022-09-09] MEDS: NYSTATIN CREAM 15 GM TUBE TOP SCH ×2 (08:01→23:31)
[2022-09-09] MEDS: MULTIVITAMIN LIQUID (CENTRUM) 60 ML BOTTLE PO SCH (08:01)
[2022-09-09] MEDS: VALPROIC ACID 250 MG/5 ML UDCUP PO SCH ×2 (08:01→21:30)
[2022-09-09] MEDS: METOPROLOL TARTRATE 50 MG TABLET PO SCH ×2 (08:01→21:30)
[2022-09-09] MEDS: amLODIPine 10 MG TABLET NG SCH (08:02)
[2022-09-09] MEDS: PHENobarbital 30 MG TABLET PER TUBE SCH ×2 (08:02→21:30)
[2022-09-09 09:20] LABS: Hyaline Casts,Urine 47 /LPF (0-3); Mucus,Urine Few /LPF (Occasional); RBC,Urine 687 /HPF (0-4)
[2022-09-09 09:21] LABS: Bilirubin,Urine Small mg/dL (Negative); Blood, Urine Large mg/dL (Negative); Glucose,Urine (UA) Negative (Negative); Ketones,Urine 15 mg/dL (Negative); Nitrite,Urine Positive (Negative); Protein,Urine >=300 mg/dL (Negative); Urine Appearance Turbid (Clear); Urine Color Amber (Yellow); Urine Specific Gravity 1.025 (1.001-1.035); Urine Urobilinogen 0.2 eU/dL (<2.0)
[2022-09-09 15:38] LABS: Arterial Base Excess iSTAT 3 MMOL/L (-2.5-2.5); Arterial Bicarbonate iSTAT 27.4 MMOL/L (20-26); Arterial O2 Saturation iSTAT 94 % (95-100); Arterial PCO2 iSTAT 42 MM HG (35-48); Arterial PO2 iSTAT 69 MM HG (80-95); Arterial Total CO2 iSTAT 29 MMO/L (23-27)
[2022-09-09] MEDS: ACETYLCYSTEINE 20% 800 MG/4 ML VIAL RESP TX SCH ×2 (16:30→23:10)
[2022-09-09] MEDS: cefTRIAXone 1,000 MG in SODIUM CHLORIDE 0.9% 100 ML IV SCH (17:27)
[2022-09-09] MEDS: levETIRAcetam LIQUID 100 MG/ML 30 ML/BOTTLE PO SCH (17:28)
[2022-09-09] MEDS: FAMOTIDINE 8 MG/ML 50 ML/BOTTLE PO SCH (21:35)
[2022-09-10] MEDS: INSULIN LISPRO 100 UNIT/ML SUBCUT SCH ×4 (00:30→18:14)
[2022-09-10] MEDS: ACETAMINOPHEN 325 MG TABLET PO PRN (00:58)
[2022-09-10 05:27] LABS: Basophils % 0.3 % (0.0-0.8); Eosinophils # 0.5 10*3/uL (0.0-0.87); Eosinophils % 3.3 % (0.00-10.9); Hemoglobin 7.4 GM/DL (14.0-18.0); Immature Granulocytes Absolute 0.42 #; Mean Corpuscular HGB Conc 29.6 GM/DL (32-36); Mean Corpuscular Volume 96.5 FL (87-102); Mean Platelet Volume 9.7 FL (9.6-12.0); Monocytes # 1.6 10*3/uL (0.11-0.8); Monocytes % 11.5 % (1.7-12.7); NRBC # 0.18 10*3/uL; Neutrophils % 74.9 % (38.7-73.9); Platelet Count 255 T/CUMM (130-400); Red Blood Count 2.59 MC/CUMM (3.8-5.5); Red Cell Distribution Width 22.2 % (9.3-17.3); White Blood Count 14.1 T/CUMM (4-12)
[2022-09-10 06:00] LABS: Albumin 1.9 G/DL (3.4-5.0); Bilirubin,Total 1.2 MG/DL (0.20-1.00); Calcium 8.8 MG/DL (8.5-10.1); Osmolality,Calculated 300.2 MOS/KG (273-304); Potassium 4.7 MMOL/L (3.5-5.1); Total Protein 6.3 G/DL (6.4-8.2)
[2022-09-10] MEDS: ACETYLCYSTEINE 20% 800 MG/4 ML VIAL RESP TX SCH ×3 (07:06→21:45)
[2022-09-10] MEDS: LEVALBUTEROL 1.25 MG/3 ML NEB RESP TX SCH ×3 (07:06→21:45)
[2022-09-10] MEDS: METOPROLOL TARTRATE 50 MG TABLET PO SCH ×2 (09:58→22:05)
[2022-09-10] MEDS: amLODIPine 10 MG TABLET NG SCH (09:58)
[2022-09-10] MEDS: glipiZIDE 5 MG TABLET PO SCH (09:58)
[2022-09-10] MEDS: PHENobarbital 30 MG TABLET PER TUBE SCH ×2 (09:58→22:03)
[2022-09-10] MEDS: PHENYTOIN 100 MG/4 ML UDCUP PER TUBE SCH ×2 (09:59→22:05)
[2022-09-10] MEDS: APIXABAN 2.5 MG TABLET PO SCH ×2 (09:59→22:05)
[2022-09-10] MEDS: NYSTATIN CREAM 15 GM TUBE TOP SCH ×2 (09:59→22:06)
[2022-09-10] MEDS: VALPROIC ACID 250 MG/5 ML UDCUP PO SCH ×2 (09:59→22:04)
[2022-09-10] MEDS: MULTIVITAMIN LIQUID (CENTRUM) 60 ML BOTTLE PO SCH (10:11)
[2022-09-10] MEDS: INSULIN GLARGINE 100 UNIT/ML SUBCUT SCH ×2 (10:18→22:05)
[2022-09-10] MEDS: LINEZOLID INJ 600 MG/300 ML PREMIX IV SCH (16:31)
[2022-09-10] MEDS: cefTRIAXone 1,000 MG in SODIUM CHLORIDE 0.9% 100 ML IV SCH (18:14)
[2022-09-10] MEDS: levETIRAcetam LIQUID 100 MG/ML 30 ML/BOTTLE PO SCH (18:14)
[2022-09-10] MEDS: FAMOTIDINE 8 MG/ML 50 ML/BOTTLE PO SCH (22:06)
[2022-09-11] MEDS: INSULIN LISPRO 100 UNIT/ML SUBCUT SCH ×4 (00:49→18:03)
[2022-09-11] MEDS: LINEZOLID INJ 600 MG/300 ML PREMIX IV SCH ×2 (02:52→18:04)
[2022-09-11] MEDS: ACETYLCYSTEINE 20% 800 MG/4 ML VIAL RESP TX SCH ×3 (07:25→22:10)
[2022-09-11] MEDS: LEVALBUTEROL 1.25 MG/3 ML NEB RESP TX SCH ×3 (07:25→22:10)
[2022-09-11 07:59] LABS: Basophils % 0.4 % (0.0-0.8); Eosinophils # 0.5 10*3/uL (0.0-0.87); Eosinophils % 4.6 % (0.00-10.9); Hematocrit 24.2 VOL% (42.0-52.0); Hemoglobin 7.3 GM/DL (14.0-18.0); Immature Granulocytes % 3.4 %; Immature Granulocytes Absolute 0.39 #; Lymphocytes # 0.9 10*3/uL (1.4-4.0); Mean Corpuscular HGB Conc 30.2 GM/DL (32-36); Mean Corpuscular Volume 94.9 FL (87-102); Mean Platelet Volume 10.1 FL (9.6-12.0); Monocytes # 1.6 10*3/uL (0.11-0.8); Monocytes % 13.9 % (1.7-12.7); NRBC # 0.17 10*3/uL; Neutrophils % 69.7 % (38.7-73.9); Platelet Count 259 T/CUMM (130-400); Red Blood Count 2.55 MC/CUMM (3.8-5.5); Red Cell Distribution Width 22.5 % (9.3-17.3); White Blood Count 11.3 T/CUMM (4-12)
[2022-09-11] MEDS: glipiZIDE 5 MG TABLET PO SCH (08:19)
[2022-09-11 08:33] LABS: Albumin 1.7 G/DL (3.4-5.0); Bilirubin,Total 1.2 MG/DL (0.20-1.00); Osmolality,Calculated 306.1 MOS/KG (273-304); Potassium 5.3 MMOL/L (3.5-5.1); Total Protein 6.1 G/DL (6.4-8.2)
[2022-09-11 08:37] LABS: Anisocytosis 1+; Macrocytosis Slight; Ovalocytes Few; Platelet Estimate Normal; Polychromasia Slight
[2022-09-11] MEDS: NYSTATIN CREAM 15 GM TUBE TOP SCH ×2 (13:39→22:29)
[2022-09-11 14:06] LABS: Arterial Base Excess iSTAT 2 MMOL/L (-2.5-2.5); Arterial Bicarbonate iSTAT 28.7 MMOL/L (20-26); Arterial O2 Saturation iSTAT 58 % (95-100); Arterial PCO2 iSTAT 54 MM HG (35-48); Arterial PO2 iSTAT 33 MM HG (80-95); Arterial Total CO2 iSTAT 30 MMO/L (23-27); Arterial pH iSTAT 7.335 (7.35-7.45)
[2022-09-11 14:33] LABS: Calcium 8.7 MG/DL (8.5-10.1); Osmolality,Calculated 290.8 MOS/KG (273-304); Potassium 4.3 MMOL/L (3.5-5.1)
[2022-09-11] MEDS: VALPROIC ACID 250 MG/5 ML UDCUP PO SCH ×2 (15:00→22:04)
[2022-09-11] MEDS: PHENobarbital 30 MG TABLET PER TUBE SCH ×2 (15:00→22:04)
[2022-09-11] MEDS: INSULIN GLARGINE 100 UNIT/ML SUBCUT SCH ×2 (15:00→22:05)
[2022-09-11] MEDS: LEVOFLOXACIN INJ 500 MG/100 ML PREMIX IV SCH (15:00)
[2022-09-11] MEDS: MULTIVITAMIN LIQUID (CENTRUM) 60 ML BOTTLE PO SCH (15:00)
[2022-09-11] MEDS: amLODIPine 10 MG TABLET NG SCH (15:00)
[2022-09-11] MEDS: PHENYTOIN 100 MG/4 ML UDCUP PER TUBE SCH ×2 (15:00→22:04)
[2022-09-11] MEDS: METOPROLOL TARTRATE 50 MG TABLET PO SCH ×2 (15:00→22:03)
[2022-09-11 15:16] LABS: Arterial Base Excess iSTAT 0 MMOL/L (-2.5-2.5); Arterial O2 Saturation iSTAT 89 % (95-100); Arterial PCO2 iSTAT 48 MM HG (35-48); Arterial PO2 iSTAT 59 MM HG (80-95); Arterial Total CO2 iSTAT 27 MMO/L (23-27); Arterial pH iSTAT 7.345 (7.35-7.45)
[2022-09-11] MEDS: APIXABAN 2.5 MG TABLET PO SCH ×2 (16:14→22:03)
[2022-09-11] MEDS: levETIRAcetam LIQUID 100 MG/ML 30 ML/BOTTLE PO SCH (18:55)
[2022-09-11] MEDS: ERTAPENEM 500 MG in SODIUM CHLORIDE 0.9% 100 ML IV SCH (22:04)
[2022-09-11] MEDS: FAMOTIDINE 8 MG/ML 50 ML/BOTTLE PO SCH (22:05)
[2022-09-12] MEDS: LINEZOLID INJ 600 MG/300 ML PREMIX IV SCH ×2 (03:29→16:22)
[2022-09-12 05:31] LABS: Basophils # 0.1 10*3/uL (0.0-0.2); Basophils % 0.4 % (0.0-0.8); Eosinophils # 0.5 10*3/uL (0.0-0.87); Eosinophils % 3.9 % (0.00-10.9); Hematocrit 25.6 VOL% (42.0-52.0); Hemoglobin 7.7 GM/DL (14.0-18.0); Immature Granulocytes % 4.6 %; Immature Granulocytes Absolute 0.59 #; Lymphocytes # 0.9 10*3/uL (1.4-4.0); Lymphocytes % 6.8 % (21.2-54.2); Mean Corpuscular HGB Conc 30.1 GM/DL (32-36); Mean Corpuscular Volume 96.6 FL (87-102); Mean Platelet Volume 10.5 FL (9.6-12.0); Monocytes # 1.8 10*3/uL (0.11-0.8); Monocytes % 13.8 % (1.7-12.7); NRBC # 0.15 10*3/uL; Neutrophils % 70.5 % (38.7-73.9); Platelet Count 261 T/CUMM (130-400); Red Blood Count 2.65 MC/CUMM (3.8-5.5); Red Cell Distribution Width 23.2 % (9.3-17.3); White Blood Count 12.9 T/CUMM (4-12)
[2022-09-12 05:46] LABS: Phenytoin (Dilantin) 4.6 UG/ML (10-20)
[2022-09-12 05:59] LABS: Albumin 1.8 G/DL (3.4-5.0); Bilirubin,Total 1.2 MG/DL (0.20-1.00); Calcium 8.9 MG/DL (8.5-10.1); Osmolality,Calculated 295.1 MOS/KG (273-304); Potassium 4.8 MMOL/L (3.5-5.1); Total Protein 6.3 G/DL (6.4-8.2)
[2022-09-12 06:06] LABS: Anisocytosis 1+; Band Neutrophils 24 % (0-10); Eosinophils 5 % (0-10); Lymphocytes 8 % (20-55); Macrocytosis 1+; Myelocytes 1 %; Nucleated Red Blood Cells 2 /100 WBC (0-5); Platelet Estimate Normal; Total Cells Counted 100
[2022-09-12 06:07] LABS: Ovalocytes Few; Polychromasia Slight
[2022-09-12] MEDS: INSULIN LISPRO 100 UNIT/ML SUBCUT SCH ×4 (06:13→18:04)
[2022-09-12] MEDS: LEVALBUTEROL 1.25 MG/3 ML NEB RESP TX SCH ×3 (07:15→23:40)
[2022-09-12] MEDS: ACETYLCYSTEINE 20% 800 MG/4 ML VIAL RESP TX SCH ×3 (07:15→23:40)
[2022-09-12] MEDS ORDERED: PHENYTOIN 100 MG/2 ML VIAL IV SCH (07:30)
[2022-09-12] MEDS ORDERED: PHENYTOIN INJ 300 MG in SODIUM CHLORIDE 0.9% 50 ML IV SCH (09:00)
[2022-09-12] MEDS: VALPROIC ACID 250 MG/5 ML UDCUP PO SCH ×2 (11:04→22:17)
[2022-09-12] MEDS: PHENYTOIN 100 MG/4 ML UDCUP PER TUBE SCH ×2 (11:04→22:16)
[2022-09-12] MEDS: MULTIVITAMIN LIQUID (CENTRUM) 60 ML BOTTLE PO SCH (11:04)
[2022-09-12] MEDS: INSULIN GLARGINE 100 UNIT/ML SUBCUT SCH ×2 (11:04→22:18)
[2022-09-12] MEDS: APIXABAN 2.5 MG TABLET PO SCH ×2 (11:04→22:17)
[2022-09-12] MEDS: METOPROLOL TARTRATE 50 MG TABLET PO SCH ×2 (11:04→22:17)
[2022-09-12] MEDS: glipiZIDE 5 MG TABLET PO SCH (11:04)
[2022-09-12] MEDS: PHENobarbital 30 MG TABLET PER TUBE SCH ×2 (11:05→22:17)
[2022-09-12] MEDS: NYSTATIN CREAM 15 GM TUBE TOP SCH ×2 (11:05→22:17)
[2022-09-12] MEDS: amLODIPine 10 MG TABLET NG SCH (11:05)
[2022-09-12] MEDS: levETIRAcetam LIQUID 100 MG/ML 30 ML/BOTTLE PO SCH (18:20)
[2022-09-12] MEDS: ERTAPENEM 500 MG in SODIUM CHLORIDE 0.9% 100 ML IV SCH (22:16)
[2022-09-12] MEDS: FAMOTIDINE 8 MG/ML 50 ML/BOTTLE PO SCH (22:17)
[2022-09-13] MEDS: INSULIN LISPRO 100 UNIT/ML SUBCUT SCH ×4 (01:23→17:53)
[2022-09-13] MEDS: LINEZOLID INJ 600 MG/300 ML PREMIX IV SCH ×2 (03:09→15:11)
[2022-09-13 04:49] LABS: Basophils # 0.1 10*3/uL (0.0-0.2); Basophils % 0.5 % (0.0-0.8); Eosinophils # 0.5 10*3/uL (0.0-0.87); Eosinophils % 3.7 % (0.00-10.9); Hematocrit 25.9 VOL% (42.0-52.0); Hemoglobin 7.6 GM/DL (14.0-18.0); Immature Granulocytes % 5.5 %; Immature Granulocytes Absolute 0.73 #; Lymphocytes % 7.7 % (21.2-54.2); Mean Corpuscular HGB Conc 29.3 GM/DL (32-36); Mean Corpuscular Volume 97.7 FL (87-102); Monocytes # 1.9 10*3/uL (0.11-0.8); Monocytes % 14.5 % (1.7-12.7); Neutrophils % 68.1 % (38.7-73.9); Platelet Count 247 T/CUMM (130-400); Red Blood Count 2.65 MC/CUMM (3.8-5.5); Red Cell Distribution Width 23.6 % (9.3-17.3); White Blood Count 13.3 T/CUMM (4-12)
[2022-09-13 05:15] LABS: Eosinophils 3 % (0-10); Lymphocytes 2 % (20-55); Platelet Estimate Adequate; Total Cells Counted 100
[2022-09-13 05:16] LABS: Anisocytosis Slight; Hypochromia Slight; Macrocytosis Slight
[2022-09-13 05:31] LABS: Albumin 1.8 G/DL (3.4-5.0); Bilirubin,Total 1.3 MG/DL (0.20-1.00); Calcium 8.6 MG/DL (8.5-10.1); Osmolality,Calculated 295.4 MOS/KG (273-304); Potassium 4.9 MMOL/L (3.5-5.1); Total Protein 6.1 G/DL (6.4-8.2)
[2022-09-13] MEDS: LEVALBUTEROL 1.25 MG/3 ML NEB RESP TX SCH ×2 (07:25→14:47)
[2022-09-13] MEDS: ACETYLCYSTEINE 20% 800 MG/4 ML VIAL RESP TX SCH ×2 (07:25→14:47)
[2022-09-13] MEDS: MULTIVITAMIN LIQUID (CENTRUM) 60 ML BOTTLE PO SCH (08:45)
[2022-09-13] MEDS: VALPROIC ACID 250 MG/5 ML UDCUP PO SCH ×2 (08:45→21:30)
[2022-09-13] MEDS: PHENYTOIN 100 MG/4 ML UDCUP PER TUBE SCH ×2 (08:45→21:30)
[2022-09-13] MEDS: amLODIPine 10 MG TABLET NG SCH (08:46)
[2022-09-13] MEDS: APIXABAN 2.5 MG TABLET PO SCH ×2 (08:46→21:30)
[2022-09-13] MEDS: METOPROLOL TARTRATE 50 MG TABLET PO SCH ×2 (08:46→21:30)
[2022-09-13] MEDS: PHENobarbital 30 MG TABLET PER TUBE SCH ×2 (08:46→21:30)
[2022-09-13] MEDS: glipiZIDE 5 MG TABLET PO SCH (08:46)
[2022-09-13] MEDS: INSULIN GLARGINE 100 UNIT/ML SUBCUT SCH ×2 (08:47→21:30)
[2022-09-13] MEDS: NYSTATIN CREAM 15 GM TUBE TOP SCH ×2 (08:47→21:30)
[2022-09-13] MEDS ORDERED: POLYVINYL 0.5%/POVIDONE 0.6% OPH SOLN 15 ML BOTTLE BOTH EYES PRN (13:01)
[2022-09-13] MEDS: LEVOFLOXACIN INJ 500 MG/100 ML PREMIX IV SCH (15:11)
[2022-09-13] MEDS: levETIRAcetam LIQUID 100 MG/ML 30 ML/BOTTLE PO SCH (18:34)
[2022-09-13] MEDS: FAMOTIDINE 8 MG/ML 50 ML/BOTTLE PO SCH (21:30)
[2022-09-14] MEDS: ACETYLCYSTEINE 20% 800 MG/4 ML VIAL RESP TX SCH ×3 (00:24→14:36)
[2022-09-14] MEDS: LEVALBUTEROL 1.25 MG/3 ML NEB RESP TX SCH ×3 (00:24→14:36)
[2022-09-14] MEDS: INSULIN LISPRO 100 UNIT/ML SUBCUT SCH ×4 (01:01→18:09)
[2022-09-14] MEDS: LINEZOLID INJ 600 MG/300 ML PREMIX IV SCH ×2 (03:10→15:32)
[2022-09-14 04:58] LABS: Basophils # 0.1 10*3/uL (0.0-0.2); Basophils % 0.6 % (0.0-0.8); Eosinophils # 0.5 10*3/uL (0.0-0.87); Eosinophils % 3.8 % (0.00-10.9); Hematocrit 25.8 VOL% (42.0-52.0); Hemoglobin 7.6 GM/DL (14.0-18.0); Immature Granulocytes % 6.9 %; Immature Granulocytes Absolute 0.94 #; Lymphocytes # 0.8 10*3/uL (1.4-4.0); Lymphocytes % 6.1 % (21.2-54.2); Mean Corpuscular HGB Conc 29.5 GM/DL (32-36); Mean Platelet Volume 10.2 FL (9.6-12.0); Monocytes # 1.8 10*3/uL (0.11-0.8); Monocytes % 13.5 % (1.7-12.7); NRBC # 0.29 10*3/uL; Neutrophils % 69.1 % (38.7-73.9); Platelet Count 249 T/CUMM (130-400); Red Blood Count 2.66 MC/CUMM (3.8-5.5); White Blood Count 13.6 T/CUMM (4-12)
[2022-09-14 05:34] LABS: Albumin 1.7 G/DL (3.4-5.0); Bilirubin,Total 1.4 MG/DL (0.20-1.00); Calcium 8.6 MG/DL (8.5-10.1); Osmolality,Calculated 299.5 MOS/KG (273-304); Potassium 5.2 MMOL/L (3.5-5.1)
[2022-09-14 05:36] LABS: Band Neutrophils 1 % (0-10); Eosinophils 3 % (0-10); Hypochromia Slight; Lymphocytes 8 % (20-55); Nucleated Red Blood Cells 1 /100 WBC (0-5); Platelet Estimate Adequate; Total Cells Counted 100
[2022-09-14 05:37] LABS: Anisocytosis Slight; Macrocytosis Slight; Ovalocytes Slight; Polychromasia Slight
[2022-09-14] MEDS: METOPROLOL TARTRATE 50 MG TABLET PO SCH ×2 (08:42→20:07)
[2022-09-14] MEDS: glipiZIDE 5 MG TABLET PO SCH (08:42)
[2022-09-14] MEDS: PHENobarbital 30 MG TABLET PER TUBE SCH ×2 (08:44→20:07)
[2022-09-14] MEDS: APIXABAN 2.5 MG TABLET PO SCH ×2 (08:44→20:07)
[2022-09-14] MEDS: amLODIPine 10 MG TABLET NG SCH (08:44)
[2022-09-14] MEDS: VALPROIC ACID 250 MG/5 ML UDCUP PO SCH ×2 (08:44→20:08)
[2022-09-14] MEDS: MULTIVITAMIN LIQUID (CENTRUM) 60 ML BOTTLE PO SCH (08:44)
[2022-09-14] MEDS: INSULIN GLARGINE 100 UNIT/ML SUBCUT SCH ×2 (08:45→20:57)
[2022-09-14] MEDS: NYSTATIN CREAM 15 GM TUBE TOP SCH ×2 (08:45→21:14)
[2022-09-14] MEDS: PHENYTOIN 100 MG/4 ML UDCUP PER TUBE SCH ×2 (09:30→20:08)
[2022-09-14] MEDS: levETIRAcetam LIQUID 100 MG/ML 30 ML/BOTTLE PO SCH (18:10)
[2022-09-14] MEDS: FAMOTIDINE 8 MG/ML 50 ML/BOTTLE PO SCH (20:08)
[2022-09-15] MEDS: INSULIN LISPRO 100 UNIT/ML SUBCUT SCH ×5 (00:42→23:06)
[2022-09-15] MEDS: LINEZOLID INJ 600 MG/300 ML PREMIX IV SCH ×2 (04:09→14:56)
[2022-09-15 06:16] LABS: Basophils # 0.1 10*3/uL (0.0-0.2); Basophils % 0.6 % (0.0-0.8); Eosinophils # 0.5 10*3/uL (0.0-0.87); Eosinophils % 4.3 % (0.00-10.9); Hemoglobin 7.8 GM/DL (14.0-18.0); Immature Granulocytes % 7.9 %; Immature Granulocytes Absolute 0.99 #; Lymphocytes # 0.7 10*3/uL (1.4-4.0); Lymphocytes % 5.4 % (21.2-54.2); Mean Corpuscular Volume 97.7 FL (87-102); Mean Platelet Volume 10.4 FL (9.6-12.0); Monocytes # 1.7 10*3/uL (0.11-0.8); Monocytes % 13.3 % (1.7-12.7); NRBC # 0.39 10*3/uL; Neutrophils % 68.5 % (38.7-73.9); Platelet Count 275 T/CUMM (130-400); Red Blood Count 2.66 MC/CUMM (3.8-5.5); Red Cell Distribution Width 24.8 % (9.3-17.3); White Blood Count 12.5 T/CUMM (4-12)
[2022-09-15 06:41] LABS: Anisocytosis 1+; Band Neutrophils 3 % (0-10); Eosinophils 1 % (0-10); Hypochromia Slight; Lymphocytes 1 % (20-55); Macrocytosis 1+; Metamyelocytes 3 %; Myelocytes 1 %; Nucleated Red Blood Cells 3 /100 WBC (0-5); Polychromasia Slight; Total Cells Counted 100
[2022-09-15 06:42] LABS: Ovalocytes Slight; Platelet Estimate Normal
[2022-09-15 06:47] LABS: Albumin 1.7 G/DL (3.4-5.0); Bilirubin,Total 1.3 MG/DL (0.20-1.00); Calcium 8.6 MG/DL (8.5-10.1); Osmolality,Calculated 297.8 MOS/KG (273-304); Potassium 4.4 MMOL/L (3.5-5.1); Total Protein 5.9 G/DL (6.4-8.2)
[2022-09-15] MEDS: ACETYLCYSTEINE 20% 800 MG/4 ML VIAL RESP TX SCH ×4 (07:05→22:45)
[2022-09-15] MEDS: LEVALBUTEROL 1.25 MG/3 ML NEB RESP TX SCH ×4 (07:05→22:45)
[2022-09-15] MEDS: INSULIN GLARGINE 100 UNIT/ML SUBCUT SCH ×2 (09:30→22:54)
[2022-09-15] MEDS: ACETAMINOPHEN 325 MG TABLET PO PRN ×3 (09:32→22:44)
[2022-09-15] MEDS: PHENYTOIN 100 MG/4 ML UDCUP PER TUBE SCH ×2 (09:34→22:43)
[2022-09-15] MEDS: VALPROIC ACID 250 MG/5 ML UDCUP PO SCH ×2 (09:35→22:43)
[2022-09-15] MEDS: APIXABAN 2.5 MG TABLET PO SCH ×2 (09:35→22:44)
[2022-09-15] MEDS: PHENobarbital 30 MG TABLET PER TUBE SCH ×2 (09:35→22:44)
[2022-09-15] MEDS: glipiZIDE 5 MG TABLET PO SCH (09:35)
[2022-09-15] MEDS: amLODIPine 10 MG TABLET NG SCH (09:35)
[2022-09-15] MEDS: METOPROLOL TARTRATE 50 MG TABLET PO SCH ×2 (09:35→22:44)
[2022-09-15] MEDS: MULTIVITAMIN LIQUID (CENTRUM) 60 ML BOTTLE PO SCH (12:01)
[2022-09-15] MEDS: NYSTATIN CREAM 15 GM TUBE TOP SCH ×2 (12:01→22:46)
[2022-09-15] MEDS ORDERED: CEFEPIME 2,000 MG in SODIUM CHLORIDE 0.9% 100 ML IV SCH (14:30)
[2022-09-15] MEDS ORDERED: MICAFUNGIN 100 MG in SODIUM CHLORIDE 0.9% 100 ML IV SCH (16:00)
[2022-09-15] MEDS ORDERED: MEROPENEM 500 MG in SODIUM CHLORIDE 0.9% 100 ML IV SCH (17:00)
[2022-09-15] MEDS: levETIRAcetam LIQUID 100 MG/ML 30 ML/BOTTLE PO SCH (17:44)
[2022-09-15] MEDS: FAMOTIDINE 8 MG/ML 50 ML/BOTTLE PO SCH (22:46)
[2022-09-16] MEDS: LINEZOLID INJ 600 MG/300 ML PREMIX IV SCH (04:35)
[2022-09-16] MEDS: INSULIN LISPRO 100 UNIT/ML SUBCUT SCH (05:56)
[2022-09-16] MEDS: ACETYLCYSTEINE 20% 800 MG/4 ML VIAL RESP TX SCH ×2 (07:35→15:00)
[2022-09-16] MEDS: LEVALBUTEROL 1.25 MG/3 ML NEB RESP TX SCH ×2 (07:35→15:00)
[2022-09-16 08:03] LABS: Basophils # 0.1 10*3/uL (0.0-0.2); Basophils % 0.4 % (0.0-0.8); Eosinophils # 0.5 10*3/uL (0.0-0.87); Eosinophils % 3.4 % (0.00-10.9); Hematocrit 26.5 VOL% (42.0-52.0); Hemoglobin 7.8 GM/DL (14.0-18.0); Immature Granulocytes % 5.4 %; Immature Granulocytes Absolute 0.74 #; Lymphocytes # 0.8 10*3/uL (1.4-4.0); Lymphocytes % 5.7 % (21.2-54.2); Mean Corpuscular HGB Conc 29.4 GM/DL (32-36); Mean Corpuscular Volume 99.6 FL (87-102); Mean Platelet Volume 9.2 FL (9.6-12.0); Monocytes # 1.5 10*3/uL (0.11-0.8); NRBC # 0.14 10*3/uL; Neutrophils % 74.1 % (38.7-73.9); Platelet Count 246 T/CUMM (130-400); Red Blood Count 2.66 MC/CUMM (3.8-5.5); Red Cell Distribution Width 25.2 % (9.3-17.3); White Blood Count 13.7 T/CUMM (4-12)
[2022-09-16 08:33] LABS: Calcium 8.9 MG/DL (8.5-10.1); Osmolality,Calculated 298.4 MOS/KG (273-304); Potassium 4.8 MMOL/L (3.5-5.1)
[2022-09-16 08:35] LABS: Band Neutrophils 2 % (0-10); Eosinophils 3 % (0-10); Hypochromia Slight; Lymphocytes 6 % (20-55); Microcytosis Slight; Nucleated Red Blood Cells 1 /100 WBC (0-5); Ovalocytes Slight; Platelet Estimate Adequate; Total Cells Counted 100
[2022-09-16] MEDS: PHENYTOIN 100 MG/4 ML UDCUP PER TUBE SCH (09:20)
[2022-09-16] MEDS: VALPROIC ACID 250 MG/5 ML UDCUP PO SCH (09:20)
[2022-09-16] MEDS: MULTIVITAMIN LIQUID (CENTRUM) 60 ML BOTTLE PO SCH (09:20)
[2022-09-16] MEDS: METOPROLOL TARTRATE 50 MG TABLET PO SCH (09:22)
[2022-09-16] MEDS: APIXABAN 2.5 MG TABLET PO SCH (09:23)
[2022-09-16] MEDS: PHENobarbital 30 MG TABLET PER TUBE SCH (09:23)
[2022-09-16] MEDS: glipiZIDE 5 MG TABLET PO SCH (09:23)
[2022-09-16] MEDS: amLODIPine 10 MG TABLET NG SCH (09:23)
[2022-09-16] MEDS: ACETAMINOPHEN 325 MG TABLET PO PRN (09:32)
[2022-09-16] MEDS: INSULIN GLARGINE 100 UNIT/ML SUBCUT SCH (09:38)
[2022-09-16 09:48] VITALS: BP 126/52
== END 2022-09-16 11:14 | disposition expired | DRG 4 ==
LOC: N.ICU 13:13 → SUATTDRO 13:13 → N.5E 09-07 17:29 → N.2E 09-14 10:03
PROVIDERS: ADMIT Internal Medicine; ATTEND Hospitalist
PROC: EGDWPEG (ICD-10-PCS; 2022-08-27 12:05)